=== PATIENT | female | born 1950 | race Two or more races ===

== ENCOUNTER 2020-02-09 08:50 | Inpatient (IN) | payer OTHER ==
[~2020-02-09] VITALS: Ht 165.1 cm; Wt 96.2 kg
--- NOTE | 2020-02-09 10:00 | NUR ---
WOUND CARE NOTE: IN TO SEE PATIENT AT THIS TIME PER WOUND CARE CONSULT REQUEST BY BEDSIDE NURSE. [facility]OC. PATIENT BROUGHT COVERED IN FECES, ALOC. BEDSIDE NURSE RECENTLY PROVIDED BEDBATH/PERICARE TO THE PATIENT. ALL FECES REMOVED. SKIN TO THE SACRUM, BUTTOCKS, BILATERAL POSTERIOR THIGHS, PERINEUM IS BRIGHT RED, INTACT. PATIENT HAS KATYA D/T HER BEING INCONTINENT OF BOWEL AND BLADDER FOR UNKNOWN PERIOD OF TIME. ASSESSED DANIEL SCORE 12. PATIENT IS VERY CONFUSED, BUT CAN ASSIST WITH HER TURNING. NO OTHER SKIN INTEGRITY ISSUES SEEN AT THIS TIME. [facility]. SKIN/WOUND CARE PLAN IMPLEMENTED. RECOMMEND: SPECIALTY AIR MATTRESS, PATIENT TO BE PLACED, PENDING DELIVERY BY ROBERT CARABALLO, FREQUENT TURN SCHEDULE Q 2 HOURS, PRN CONDITION PERMITS, WITH PRESSURE REDISTRIBUTION USING PILLOWS/WEDGES, BID/PRN APPLICATION ZGUARD, OPTIFOAM GENTLE SACRAL DRESSING PREVENTATIVE, DIETARY CONSULT FOR LOW DANIEL SCORE OF 12, CONTINUED MONITORING BY WOUND CARE TEAM. Addendum: 02/09/20 at 1446 by Augustina Murphy RN Amended: Links added.
[2020-02-09] MEDS ORDERED: SODIUM CHLORIDE 0.9% 1,000 ML IV ONE (10:25)
[2020-02-09] MEDS ORDERED: SODIUM CHLORIDE 0.9% 500 ML IVB ONE (10:25)
[2020-02-09 10:48] LABS: Urine Bacteria NONE SEEN /hpf (None Seen); Urine Blood 1+ /uL (Negative); Urine WBC 1 /hpf (0 - 5)
[2020-02-09 10:57] LABS: Basophils # (auto) 0 10 ^3/uL (0-0.2); Basophils % (auto) 0.2 % (0.0-2.0); Eosinophils # (auto) 0 10 ^3/uL (0-0.8); Eosinophils % (auto) 0.1 % (0.0-7.0); Hematocrit 28.6 % (36.0-46.0); Lymphocytes # (auto) 1.2 10 ^3/uL (0.4-5.4); Lymphocytes % (auto) 7.1 % (10.0-50.0); Mean Corpuscular Hemoglobin 30.7 pg (28.0-32.0); Mean Corpuscular Hgb Conc. 31.5 g/dL (32.0-36.0); Mean Corpuscular Volume 97.5 fL (80.0-100.0); Monocytes % (auto) 11.9 % (0.0-12.0); Neutrophils # (auto) 13.5 10 ^3/uL (1.6-8.6); Neutrophils % (auto) 80.7 % (37.0-80.0); Nucleated Red Blood Cells % 0.1 %; Platelet Count (auto) 248 10^3/uL (140-450); Red Blood Cells 2.93 10^6/uL (4.0-5.20); Red Cell Distribution Width 14.6 % (11.8-14.3); White Blood Cell 16.7 10^3/uL (4.4-10.8)
[2020-02-09 11:13] LABS: Alcohol, Urine < 3.0 mg/dL (0-10); Amphetamine Screen, Urine NEGATIVE (NEGATIVE); Barbiturate Scree,Urine NEGATIVE (NEGATIVE); Benzodiazephine Screen, Urine NEGATIVE (NEGATIVE); Cannabinoid Screen, Urine NEGATIVE (NEGATIVE); Cocaine Screen, Urine NEGATIVE (NEGATIVE); Opiate Scree,Urine POSITIVE (NEGATIVE); Phencyclidine Screen, Urine NEGATIVE (NEGATIVE)
[2020-02-09 11:34] LABS: Calcium 9.1 mg/dL (8.5-10.1); Potassium 4.9 mmol/L (3.5-5.1)
[2020-02-09 11:38] LABS: BUN/Creatinine Ratio 33.9; Bilirubin, Total 0.8 mg/dL (0.2-1.0); Magnesium 2.2 mg/dL (1.6-2.6); Total Protein 6.4 g/dL (6.4-8.2)
[2020-02-09] MEDS ORDERED: LORazepam 2MG/ML-1ML VIAL IV ONE ×2 (12:00→16:00)
[2020-02-09 12:13] LABS: Lactic Acid w/Reflex 2.6 mmol/L (0.4-2.0)
[2020-02-09 13:51] LABS: INR 5.35 (0.9-1.15)
[2020-02-09] MEDS ORDERED: ALBUTEROL SULF HFA 90MCG INH 200DOSE IN SCH (14:00)
[2020-02-09] MEDS ORDERED: phytonadione 2 ML ONE (14:04)
[2020-02-09] MEDS ORDERED: DEXTROSE (50%) 50ML SYRG IV PRN (14:15)
[2020-02-09] MEDS ORDERED: PANTOPRAZOLE 40 MG/10 ML VIAL INJ IV ONE (14:15)
[2020-02-09] MEDS ORDERED: traMADol HCL 50 MG TAB PO PRN (14:15)
[2020-02-09] MEDS ORDERED: ACETAMINOPHEN 500 MG TAB PO PRN (14:15)
[2020-02-09] MEDS ORDERED: ONDANSETRON HCL 4 MG/2 ML VIAL IV PRN (14:15)
[2020-02-09] MEDS ORDERED: MORPHINE SULF INJ 2 MG/ML SYRINGE 1ML IV PRN (14:15)
[2020-02-09] MEDS ORDERED: NITROGLYCERIN 0.4 MG SL TAB SL PRN (14:15)
[2020-02-09] MEDS ORDERED: PHYTONADIONE (VIT K)10 MG/ML 1ML VIAL SUBCUT ONE (14:15)
[2020-02-09] MEDS ORDERED: levoFLOXacin 500MG 100 ML IV ONE (14:15)
[2020-02-09 14:16] LABS: CRP High Sensitivity 0.61 mg/dL (< 0.3)
[2020-02-09] MEDS: SODIUM CHLORIDE 0.9% 1,000 ML IV SCH ×2 (14:34→22:08)
[2020-02-09 15:01] LABS: Amylase 33 U/L (25-115); Lipase 61 U/L (73-393)
[2020-02-09] MEDS: MORPHINE SULF INJ 2 MG/ML SYRINGE 1ML IV PRN ×2 (15:27→20:02)
[2020-02-09] MEDS ORDERED: LORazepam 2MG/ML-1ML VIAL IV PRN (16:00)
[2020-02-09] MEDS ORDERED: diphenhdrAMINE HCL 50 MG/1 ML VL IV ONE (16:00)
[2020-02-09] MEDS ORDERED: diphenhdrAMINE HCL 50 MG/1 ML VL ONE (16:02)
[2020-02-09] MEDS ORDERED: LORazepam 2MG/ML-1ML VIAL ONE (16:02)
[2020-02-09] MEDS ORDERED: HALOPERIDOL LACTATE 5 MG/ML INJ VIAL ONE (16:03)
[2020-02-09] MEDS ORDERED: HALOPERIDOL LACTATE 5 MG/ML INJ VIAL IM ONE (16:30)
[2020-02-09] MEDS: ACCU-CHEK COMFORT CURVE STRIP VI SCH (18:30)
[2020-02-09 19:16] LABS: Hematocrit 28.1 % (36.0-46.0); Hemoglobin 8.7 g/dL (12.2-16.2)
[2020-02-09] MEDS: LORazepam 2MG/ML-1ML VIAL IV PRN (20:47)
[2020-02-09] MEDS: PANTOPRAZOLE 40 MG/10 ML VIAL INJ IV SCH (22:08)
[2020-02-09] MEDS: metroNIDAZOLE 500MG/100ML 100 ML IV SCH (22:08)
[2020-02-10] VITALS (12 sets, daily range): BP systolic 65–146; BP diastolic 21–88
[2020-02-10] MEDS: ACCU-CHEK COMFORT CURVE STRIP VI SCH ×4 (00:21→18:05)
[2020-02-10 01:51] LABS: Hematocrit 23.4 % (36.0-46.0); Hemoglobin 7.5 g/dL (12.2-16.2)
[2020-02-10] MEDS: LORazepam 2MG/ML-1ML VIAL IV PRN ×2 (02:47→09:15)
[2020-02-10] MEDS: MORPHINE SULF INJ 2 MG/ML SYRINGE 1ML IV PRN (05:12)
[2020-02-10] MEDS ORDERED: HALOPERIDOL LACTATE 5 MG/ML INJ VIAL IM PRN (06:00)
[2020-02-10] MEDS: metroNIDAZOLE 500MG/100ML 100 ML IV SCH ×2 (06:28→14:57)
[2020-02-10] MEDS: SODIUM CHLORIDE 0.9% 1,000 ML IV SCH (06:29)
[2020-02-10] MEDS ORDERED: ACETAMINOPHEN 650 MG RECT SUPP PR ONE (07:30)
[2020-02-10 07:33] LABS: Basophils # (auto) 0.1 10 ^3/uL (0-0.2); Eosinophils # (auto) 0 10 ^3/uL (0-0.8); Eosinophils % (auto) 0.1 % (0.0-7.0); Hematocrit 22.1 % (36.0-46.0); Hemoglobin 7.1 g/dL (12.2-16.2); Lymphocytes # (auto) 1.2 10 ^3/uL (0.4-5.4); Mean Corpuscular Hgb Conc. 32.3 g/dL (32.0-36.0); Monocytes # (auto) 1.5 10 ^3/uL (0-1.3)
[2020-02-10 07:34] LABS: Basophils % (auto) 0.7 % (0.0-2.0); Mean Corpuscular Volume 95.9 fL (80.0-100.0); Monocytes % (auto) 11.5 % (0.0-12.0); Neutrophils # (auto) 10.1 10 ^3/uL (1.6-8.6); Neutrophils % (auto) 78.7 % (37.0-80.0); Nucleated Red Blood Cells % 0.2 %; Platelet Count (auto) 201 10^3/uL (140-450); Red Cell Distribution Width 14.2 % (11.8-14.3); White Blood Cell 12.8 10^3/uL (4.4-10.8)
[2020-02-10 07:46] LABS: INR 1.65 (0.9-1.15); Partial Thromboplastin Time 27.9 sec (23.64-32.05)
[2020-02-10 07:58] LABS: Albumin 2.8 g/dL (3.4-5.0); Calcium 8.5 mg/dL (8.5-10.1); Potassium 4.2 mmol/L (3.5-5.1)
[2020-02-10 08:03] LABS: BUN/Creatinine Ratio 24.8; Bilirubin, Total 0.9 mg/dL (0.2-1.0); Total Protein 5.9 g/dL (6.4-8.2)
[2020-02-10] MEDS ORDERED: MEMA1TAB3 PO (08:17)
[2020-02-10] MEDS ORDERED: VENL150T26 PO (08:17)
[2020-02-10] MEDS ORDERED: AMLO5TAB15 PO (08:17)
[2020-02-10] MEDS ORDERED: MET50T PO (08:17)
[2020-02-10] MEDS ORDERED: LISI-648 PO (08:17)
[2020-02-10] MEDS ORDERED: METO25TA5 PO (08:17)
[2020-02-10] MEDS ORDERED: OMEP20TA PO (08:17)
[2020-02-10] MEDS ORDERED: ASPI-231 PO (08:17)
[2020-02-10] MEDS ORDERED: TOLT2CAP7 PO (08:17)
[2020-02-10] MEDS ORDERED: LORazepam 2MG/ML-1ML VIAL IV PRN (09:15)
[2020-02-10] MEDS: PANTOPRAZOLE 40 MG/10 ML VIAL INJ IV SCH ×2 (09:45→22:00)
[2020-02-10 09:48] LABS: Folate (Folic Acid) 14.08 ng/mL (5.38-24)
[2020-02-10] MEDS ORDERED: ZINC SULFATE 220mg CAP or TAB PO SCH (10:00)
[2020-02-10] MEDS ORDERED: ASCORBIC ACID 1,000 MG TAB PO SCH (10:00)
[2020-02-10] MEDS ORDERED: levoFLOXacin 500MG 100 ML IV SCH (10:00)
[2020-02-10] MEDS ORDERED: ENOXAPARIN SOD 40 MG/0.4 ML SYRINGE SC SCH (10:00)
[2020-02-10] MEDS ORDERED: CHOLECALCIFEROL (VITD3) 1,000UNIT=25mCg TAB PO SCH (10:00)
[2020-02-10] MEDS ORDERED: SUCCINYLCHOLINE CHLORIDE 20 MG/ML 10ML VIAL IV ONE ×2 (13:37→13:45)
[2020-02-10] MEDS ORDERED: ETOMIDATE (2MG/ML) 20ML VIAL IV ONE ×2 (13:37→13:45)
[2020-02-10] MEDS ORDERED: MIDAZOLAM DRIP 50 mg/50mL 50 ML IV ONE (13:39)
--- NOTE | 2020-02-10 13:39 | NUR ---
EEG- UNABLE TO COMPLETE ELECTROENCEPHALOGRAM, PATIENT CONFUSED AND RESTLESS.
[2020-02-10] MEDS: MIDAZOLAM DRIP 50 mg/50mL 50 ML IV SCH ×2 (13:53→23:00)
[2020-02-10] MEDS ORDERED: NOREPINEPHRINE 8 MG/250ML KIT 250 ML IV ONE (14:13)
[2020-02-10] MEDS ORDERED: PROPOFOL 100 ML IV ONE (14:30)
[2020-02-10] MEDS: PROPOFOL 100 ML IV SCH ×2 (15:35→22:30)
--- NOTE | 2020-02-10 16:21 | NUR ---
Nutrition Assessment Notes Please refer to link for full assessment notes. Est Energy needs: 9453-2232 kcals (17-20 kcal/kgBW) Est Protein needs: 82-90 gms/day (1.0-1.1 gm/kgBW) Will continue to monitor and reassess prn. Addendum: 02/10/20 at [address] Amended: Links added.
[2020-02-10] MEDS ORDERED: FLUCONAZOLE 200MG/100ML 100 ML IV ONE (17:30)
[2020-02-10] MEDS: D5W/SOD CHL 0.45% 1,000 ML IV SCH (18:03)
--- NOTE | 2020-02-10 18:20 | NUR ---
ss consult Per ss consult help to get contact information. Contact information was received. Patient has a di Jackson [phone]. Addendum: 02/10/20 at 1822 by Nhi Jara Amended: Links added.
[2020-02-10] MEDS ORDERED: MEROPENEM 1GM IVPB 100 ML IV ONE (19:00)
[2020-02-10 19:45] LABS: Hematocrit 22.4 % (36.0-46.0); Hemoglobin 7.4 g/dL (12.2-16.2)
[2020-02-10] MEDS: ACETAMINOPHEN 500 MG TAB PO PRN (20:49)
[2020-02-10] MEDS: LINEZOLID 600MG/300ML 300 ML IV SCH (22:00)
[2020-02-10] MEDS ORDERED: MIRTAZAPINE 30 MG TAB PO SCH (22:00)
[2020-02-11] VITALS (13 sets, daily range): BP systolic 110–149; BP diastolic 48–68
[2020-02-11] MEDS: ACCU-CHEK COMFORT CURVE STRIP VI SCH ×4 (00:12→17:31)
[2020-02-11 02:12] LABS: Hemoglobin 7.7 g/dL (12.2-16.2)
[2020-02-11 02:14] LABS: Hematocrit 23.5 % (36.0-46.0)
[2020-02-11] MEDS: MIDAZOLAM DRIP 50 mg/50mL 50 ML IV SCH ×3 (02:53→17:31)
[2020-02-11 06:25] LABS: Basophils # (auto) 0 10 ^3/uL (0-0.2); Basophils % (auto) 0.2 % (0.0-2.0); Eosinophils # (auto) 0.2 10 ^3/uL (0-0.8); Eosinophils % (auto) 1.6 % (0.0-7.0); Hemoglobin 7.9 g/dL (12.2-16.2); Lymphocytes # (auto) 0.8 10 ^3/uL (0.4-5.4); Lymphocytes % (auto) 9.1 % (10.0-50.0); Mean Corpuscular Hemoglobin 31.8 pg (28.0-32.0); Mean Corpuscular Hgb Conc. 33.1 g/dL (32.0-36.0); Mean Corpuscular Volume 96.1 fL (80.0-100.0); Monocytes # (auto) 0.9 10 ^3/uL (0-1.3); Monocytes % (auto) 9.6 % (0.0-12.0); Neutrophils # (auto) 7.4 10 ^3/uL (1.6-8.6); Neutrophils % (auto) 79.5 % (37.0-80.0); Nucleated Red Blood Cells % 0.5 %; Platelet Count (auto) 143 10^3/uL (140-450); Red Blood Cells 2.49 10^6/uL (4.0-5.20); Red Cell Distribution Width 14.8 % (11.8-14.3); White Blood Cell 9.3 10^3/uL (4.4-10.8)
[2020-02-11 06:41] LABS: Potassium 3.3 mmol/L (3.5-5.1)
[2020-02-11 06:43] LABS: INR 1.2 (0.9-1.15); Partial Thromboplastin Time 27.3 sec (23.64-32.05)
[2020-02-11 06:52] LABS: Albumin 2.5 g/dL (3.4-5.0); BUN/Creatinine Ratio 19.5; Bilirubin, Total 0.6 mg/dL (0.2-1.0); Calcium 8.1 mg/dL (8.5-10.1); Total Protein 5.3 g/dL (6.4-8.2)
[2020-02-11] MEDS ORDERED: MEROPENEM 1GM IVPB 100 ML IV SCH (08:00)
[2020-02-11] MEDS: PANTOPRAZOLE 40 MG/10 ML VIAL INJ IV SCH ×2 (08:08→22:11)
[2020-02-11] MEDS ORDERED: cefTRIAXone 1GM/50ML D5W 50 ML IV ONE (08:16)
[2020-02-11] MEDS: PROPOFOL 100 ML IV SCH ×2 (09:00→11:06)
--- NOTE | 2020-02-11 09:05 | NUR ---
Respiratory note: PAGED TO MOVE PT FROM ER BED 11, TO ER BED 17. PT MOVED WITHOUT INCIDENT. RN AT BEDSIDE. WILL CONTINUE TO MONITOR PT.
[2020-02-11] MEDS: LINEZOLID 600MG/300ML 300 ML IV SCH ×2 (09:33→22:11)
[2020-02-11] MEDS: NYSTATIN TOPICAL POWDER 15GM TOP SCH ×2 (09:33→22:11)
[2020-02-11] MEDS: D5W/SOD CHL 0.45% 1,000 ML IV SCH (11:42)
[2020-02-11] MEDS: FLUCONAZOLE 200MG/100ML 100 ML IV SCH (11:42)
[2020-02-11] MEDS: ALBUTEROL SULF 2.5 MG/0.5ML(0.5%) NEB SOLN NEB SCH ×2 (12:07→18:59)
[2020-02-11] MEDS ORDERED: SODIUM CHLORIDE LOCK 10 ML ONE (12:27)
[2020-02-11] MEDS ORDERED: fentaNYL CITRATE 100 MCG/2 ML VL ONE (12:28)
[2020-02-11] MEDS ORDERED: diphenhdrAMINE HCL 50 MG/1 ML VL ONE (12:28)
[2020-02-11] MEDS ORDERED: MIDAZOLAM HCL 5 MG/ML-1ML VIAL ONE (12:28)
[2020-02-11] MEDS: MEROPENEM 1GM IVPB 100 ML IV SCH (16:17)
[2020-02-11] MEDS: ACETAMINOPHEN 650 mg PER 20 mL UD GT PRN ×2 (16:37→22:51)
[2020-02-11] MEDS ORDERED: TPN PER PHARMACY 0 ML IV SCH (20:45)
[2020-02-11] MEDS: AMINO ACID INFUSION IN D5W 2,000 ML IV NR ×2 (21:09→21:51)
[2020-02-11] MEDS: POTASSIUM CHL 20MEQ/100ML 100 ML IV SCH ×2 (21:22→22:58)
[2020-02-12] VITALS (19 sets, daily range): BP systolic 112–148; BP diastolic 46–79
[2020-02-12] MEDS ORDERED: DEXTROSE (50%) 50ML SYRG IV SCH
[2020-02-12] MEDS ORDERED: IBUPROFEN 100MG/5ML ORAL SUSP 100 MG/5 ML UD GT ONE (00:30)
[2020-02-12] MEDS: InsuLIN REG 1unit/0.01ml Soln (100units/ml) SC SCH ×4 (00:59→17:18)
[2020-02-12] MEDS: MEROPENEM 1GM IVPB 100 ML IV SCH ×3 (01:00→15:55)
[2020-02-12] MEDS: ACCU-CHEK COMFORT CURVE STRIP VI SCH ×4 (06:22→17:18)
[2020-02-12 08:32] LABS: Albumin 2.1 g/dL (3.4-5.0); Calcium 7.6 mg/dL (8.5-10.1); Magnesium 1.7 mg/dL (1.6-2.6); Potassium 3.1 mmol/L (3.5-5.1)
[2020-02-12 08:37] LABS: BUN/Creatinine Ratio 11.8; Bilirubin, Total 0.6 mg/dL (0.2-1.0); Phosphorus 2.9 mg/dL (2.5-4.90); Pre Albumin 7.5 mg/dL (20.0-40.0); Total Protein 5.2 g/dL (6.4-8.2)
[2020-02-12] MEDS: D5W/SOD CHL 0.45% 1,000 ML IV SCH (09:07)
[2020-02-12] MEDS: PANTOPRAZOLE 40 MG/10 ML VIAL INJ IV SCH ×2 (09:07→21:35)
[2020-02-12] MEDS ORDERED: POTASSIUM EFFERVESENT TAB 25 MEQ GT ONE ×2 (09:15→09:30)
[2020-02-12 09:16] LABS: Basophils # (auto) 0 10 ^3/uL (0-0.2); Hematocrit 25.7 % (36.0-46.0); Hemoglobin 8.2 g/dL (12.2-16.2); Lymphocytes # (auto) 0.9 10 ^3/uL (0.4-5.4); Lymphocytes % (auto) 7.6 % (10.0-50.0); Monocytes # (auto) 1.1 10 ^3/uL (0-1.3); Nucleated Red Blood Cells % 0.1 %; Red Blood Cells 2.65 10^6/uL (4.0-5.20)
[2020-02-12 09:17] LABS: Basophils % (auto) 0.2 % (0.0-2.0); Eosinophils # (auto) 0.1 10 ^3/uL (0-0.8); Eosinophils % (auto) 1.1 % (0.0-7.0); Mean Corpuscular Hemoglobin 30.8 pg (28.0-32.0); Mean Corpuscular Hgb Conc. 31.7 g/dL (32.0-36.0); Mean Corpuscular Volume 97.1 fL (80.0-100.0); Monocytes % (auto) 8.7 % (0.0-12.0); Neutrophils # (auto) 10.2 10 ^3/uL (1.6-8.6); Neutrophils % (auto) 82.4 % (37.0-80.0); Platelet Count (auto) 140 10^3/uL (140-450); Red Cell Distribution Width 15.1 % (11.8-14.3); White Blood Cell 12.4 10^3/uL (4.4-10.8)
[2020-02-12] MEDS ORDERED: POTASSIUM CHLORIDE 60 MEQ, LIDOCAINE 1% (LOCAL ANESTH.) 6 ML in SODIUM CHL 0.9% 500 ML IV ONE (09:30)
[2020-02-12] MEDS: ALBUTEROL SULF 2.5 MG/0.5ML(0.5%) NEB SOLN NEB SCH ×4 (10:07→19:07)
[2020-02-12] MEDS: NYSTATIN TOPICAL POWDER 15GM TOP SCH ×2 (10:29→21:35)
[2020-02-12] MEDS: LINEZOLID 600MG/300ML 300 ML IV SCH ×2 (10:29→21:49)
[2020-02-12] MEDS: FLUCONAZOLE 200MG/100ML 100 ML IV SCH (13:45)
[2020-02-12] MEDS: MIDAZOLAM DRIP 50 mg/50mL 50 ML IV SCH ×2 (13:50→14:10)
--- NOTE | 2020-02-12 14:57 | NUR ---
Nutrition Consult/Followup Notes Wt: 81.6 kg Pt`s intubated sedated with no family by bedside when rounded this am. pt is currently NPO and to begin PN support from tonight @ 45 ml/hr providing 1150 kcals and 50 gm proteins. Est Energy needs: 7242-8402 kcals (17-20 kcal/kgBW), Est Protein needs: 82-90 gms/day (1.0-1.1 gm/kgBW). Will continue to monitor and reassess prn.. LABS: GLU 146 H, ALB 2.1 L, PREALB 7.5 L, TG wnl GI: Pt has no BM reported per pt and RN doc BS: 12 high risk, per RN doc. Please refer to wound assessment report for full details. PES: 1) Increased nutrient needs aeb pt sedated, NPO pt with no PO intake 2) Altered nutrition related lab values elev LFTs, elev RFTs, low GFR, hyperglycemia, mod hypoalbuminemia r/t current medical condition Comments Will continue to closely monitor pertinent labs, PO intake, and skin status prn. Will followup in 2-3 days 1) Continue to closely monitor pt NPO status. 2) Gradually advance pt to oral diet when medically feasible and as tolerated. 3) Consider a daily MVI with 500mg VitC BID. 4) advance PN support to meet > 75% of needs. 5) Continue current plan of care
[2020-02-12] MEDS ORDERED: ENOXAPARIN SOD 40 MG/0.4 ML SYRINGE SC ONE (18:45)
[2020-02-12] MEDS ORDERED: WARFARIN SODIUM 5 MG TAB PO ONE (19:00)
[2020-02-12] MEDS: LORazepam 2MG/ML-1ML VIAL IV PRN (19:55)
[2020-02-12] MEDS: ENOXAPARIN SOD 80 MG/0.8ML SYRINGE SC SCH ×2 (19:55→21:35)
[2020-02-12] MEDS ORDERED: TPN PER PHARMACY IV NR ×10 (20:00)
[2020-02-12] MEDS: MUPIROCIN 2% OINT 15gm or 22gm EACHNOSTRI SCH (21:35)
[2020-02-12] MEDS ORDERED: ENOXAPARIN SOD 80 MG/0.8ML SYRINGE SC SCH (22:00)
[2020-02-12] MEDS: ACETAMINOPHEN 650 mg PER 20 mL UD GT PRN (22:20)
[2020-02-13] VITALS (59 sets, daily range): BP systolic 118–164; BP diastolic 41–83
[2020-02-13] MEDS: ALBUTEROL SULF 2.5 MG/0.5ML(0.5%) NEB SOLN NEB SCH ×4 (00:55→18:36)
[2020-02-13] MEDS: MIDAZOLAM DRIP 50 mg/50mL 50 ML IV SCH ×5 (03:24→23:49)
[2020-02-13] MEDS: ACCU-CHEK COMFORT CURVE STRIP VI SCH ×4 (05:41→17:37)
[2020-02-13] MEDS: ACETAMINOPHEN 650 mg PER 20 mL UD GT PRN (05:48)
[2020-02-13] MEDS: InsuLIN REG 1unit/0.01ml Soln (100units/ml) SC SCH ×4 (05:51→17:36)
[2020-02-13] MEDS: ACETAMINOPHEN 500 MG TAB PO PRN (05:51)
[2020-02-13 05:53] LABS: Basophils # (auto) 0 10 ^3/uL (0-0.2); Basophils % (auto) 0.2 % (0.0-2.0); Eosinophils # (auto) 0.2 10 ^3/uL (0-0.8); Eosinophils % (auto) 2.3 % (0.0-7.0); Hematocrit 25.4 % (36.0-46.0); Hemoglobin 8.5 g/dL (12.2-16.2); Lymphocytes # (auto) 0.9 10 ^3/uL (0.4-5.4); Lymphocytes % (auto) 9.3 % (10.0-50.0); Mean Corpuscular Hgb Conc. 33.3 g/dL (32.0-36.0); Mean Corpuscular Volume 95.9 fL (80.0-100.0); Monocytes # (auto) 0.9 10 ^3/uL (0-1.3); Monocytes % (auto) 9.3 % (0.0-12.0); Neutrophils # (auto) 7.9 10 ^3/uL (1.6-8.6); Neutrophils % (auto) 78.9 % (37.0-80.0); Nucleated Red Blood Cells % 0.1 %; Platelet Count (auto) 140 10^3/uL (140-450); Red Blood Cells 2.65 10^6/uL (4.0-5.20)
[2020-02-13 06:15] LABS: Potassium 3.9 mmol/L (3.5-5.1)
[2020-02-13 06:17] LABS: INR 1.24 (0.9-1.15); Partial Thromboplastin Time 35.7 sec (23.64-32.05)
[2020-02-13 06:25] LABS: Albumin 2.2 g/dL (3.4-5.0); BUN/Creatinine Ratio 13.5; Bilirubin, Total 0.4 mg/dL (0.2-1.0); Calcium 7.9 mg/dL (8.5-10.1); Magnesium 1.8 mg/dL (1.6-2.6); Total Protein 5.9 g/dL (6.4-8.2)
[2020-02-13] MEDS: MEROPENEM 1GM IVPB 100 ML IV SCH ×3 (07:47→15:31)
[2020-02-13] MEDS: MUPIROCIN 2% OINT 15gm or 22gm EACHNOSTRI SCH ×2 (09:39→22:00)
[2020-02-13] MEDS: LINEZOLID 600MG/300ML 300 ML IV SCH ×2 (09:39→22:00)
[2020-02-13] MEDS: PANTOPRAZOLE 40 MG/10 ML VIAL INJ IV SCH ×2 (09:39→22:00)
[2020-02-13] MEDS: NYSTATIN TOPICAL POWDER 15GM TOP SCH ×2 (09:39→22:00)
[2020-02-13] MEDS: ENOXAPARIN SOD 80 MG/0.8ML SYRINGE SC SCH ×2 (09:39→22:00)
[2020-02-13] MEDS ORDERED: ENOXAPARIN SOD 40 MG/0.4 ML SYRINGE SC SCH (10:00)
[2020-02-13] MEDS ORDERED: SODIUM PHOSP 40 MEQ in D5W 5% 250 ML IV ONE (11:00)
[2020-02-13] MEDS: FLUCONAZOLE 200MG/100ML 100 ML IV SCH (11:54)
--- NOTE | 2020-02-13 13:50 | NUR ---
RT NOTE: PT. TRANSPORTED WITH LOCK INSTALLER AND RN HANH ON 15L O2 WITH BVM AND TRANSFILL TECHNICIAN WITHOUT INCIDENT. PT. PLACED ON VENTILATOR WITH ORDERED SETTINGS. ALARMS ARE ON AND AUDIBLE.
--- NOTE | 2020-02-13 16:00 | NUR ---
RECEIVED PT FROM ED V PACED AT 89, VENTILATED AC 114 TV 450 30% FI02 PEEP 6, LS CTA DIMINISHED ON THE BASIS MINIMAL ETT AND ORAL WHITE THIN SECRETIONS. PT TACHYPNEIC RR MID 30'S TO LOW 40'S RT STATES RR WAS IN THE 30'S THIS IS THE 1ST TIME RR HAS INCREASED TO THE 40'S POSSIBLY FROM ALL THE MOVEMENT FROM WHEN TRANSFERRING FROM ED TO ICU. VERSED INCREASED FROM 10 TO 12 TO DECREASE PT'S ANXIETY, VSS, PT HAS A LOW GRADE TEMP 100.O0 TEMP. ORALLY . ICE PACKS APPLIES TO LIZZETH. ARM PITS, BOTH GROINS AND BEHIND PT'S NECK. PT HAS A RECTAL TUBE IN PLACE DRAINING BROWN LIQUID STOOL. PT'S COCCYX IS EXCORIATED FROM DIARRHEA AND HAS A MAROON NON- BLANCHABLE SKIN AREA.PICTURE HAS ALREADY BEEN TAKEN. WILL REQUEST A 2ND PICTURE FOR RE-EVALUATION. ORAL CARE PROVIDED, MONITOR ALARMS VERIFIED. REPOSITIONED FOR COMFORT. PT IS LAYING ON A SPECIALTY AIR MATTRESS. 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
[2020-02-13] MEDS ORDERED: WARFARIN SODIUM 5 MG TAB PO ONE (17:00)
--- NOTE | 2020-02-13 18:00 | NUR ---
BG WNL NO COVERAGE NEEDED. ORAL CARE PER VAP PROTOCOL. REPOSITIONED FOR COMFORT. SKIN REMAINS DRY.
[2020-02-13] MEDS ORDERED: TPN PER PHARMACY IV NR ×10 (20:00)
--- NOTE | 2020-02-13 20:00 | NUR ---
REPORT GIVEN TO ILDEFONSO PAUL.
[2020-02-14] VITALS (95 sets, daily range): BP systolic 105–163; BP diastolic 38–83
[2020-02-14] MEDS: ALBUTEROL SULF 2.5 MG/0.5ML(0.5%) NEB SOLN NEB SCH ×5 (00:08→23:53)
[2020-02-14] MEDS: MORPHINE SULF INJ 2 MG/ML SYRINGE 1ML IV PRN ×2 (01:38→05:40)
[2020-02-14 04:34] LABS: INR 1.41 (0.9-1.15); Partial Thromboplastin Time 36.6 sec (23.64-32.05)
[2020-02-14 04:46] LABS: Albumin 1.7 g/dL (3.4-5.0); BUN/Creatinine Ratio 15.3; Calcium 7.7 mg/dL (8.5-10.1); Magnesium 2.1 mg/dL (1.6-2.6); Potassium 3.5 mmol/L (3.5-5.1)
[2020-02-14 04:49] LABS: Bilirubin, Total 0.2 mg/dL (0.2-1.0); Phosphorus 4.1 mg/dL (2.5-4.90); Total Protein 4.9 g/dL (6.4-8.2)
[2020-02-14] MEDS: ACCU-CHEK COMFORT CURVE STRIP VI SCH ×5 (05:39→23:46)
[2020-02-14] MEDS: InsuLIN REG 1unit/0.01ml Soln (100units/ml) SC SCH ×5 (05:39→23:46)
[2020-02-14] MEDS: MIDAZOLAM DRIP 50 mg/50mL 50 ML IV SCH ×2 (05:45→08:51)
[2020-02-14] MEDS: NYSTATIN TOPICAL POWDER 15GM TOP SCH ×2 (08:50→22:24)
[2020-02-14] MEDS: MUPIROCIN 2% OINT 15gm or 22gm EACHNOSTRI SCH ×2 (08:55→22:24)
[2020-02-14] MEDS: PANTOPRAZOLE 40 MG/10 ML VIAL INJ IV SCH ×2 (09:32→22:23)
[2020-02-14] MEDS: LINEZOLID 600MG/300ML 300 ML IV SCH ×2 (09:32→22:23)
[2020-02-14] MEDS: MEROPENEM 1GM IVPB 100 ML IV SCH ×4 (09:32→23:47)
[2020-02-14] MEDS: ENOXAPARIN SOD 80 MG/0.8ML SYRINGE SC SCH (09:32)
--- NOTE | 2020-02-14 10:00 | NUR ---
Respiratory note: RETRACTED ETT POST AM CHEST XRAY, FROM 26 TO 24CM AT THE LIP. ILDEFONSO REILLY.
--- NOTE | 2020-02-14 10:30 | NUR ---
Sedation Sedation stopped for cpap trial per Marine Driller. R.t aware. Patient remains sedated at this time. Vent changes made by R.t. When patient awake patient to be set on cpap trial.
--- NOTE | 2020-02-14 10:40 | NUR ---
Respiratory note: VENT CHANGE PER DR.M KIRBY, TO SIMV RR12, VT 450, PEEP 5, PRESSURE SUPPORT 8. CPAP TRIAL THIS AFTERNOON IF PATIENT IS AWAKE, FOLLOW UP ABG WITH CPAP TRIAL. ILDEFONSO HYATT INFORMED OF CHANGES.
--- NOTE | 2020-02-14 11:38 | NUR ---
Nutrition Consult/Followup Notes Wt: 81.6 kg, pt with wt if 97kg, a gain of 15.4kg since admission, no previous visit to verify wt history Pt`s intubated sedated with no family by bedside when rounded this am. pt is currently NPO and to begin PN support @ 60 ml/hr providing 1370 kcals and 80 gm proteins, 1050 NCP. This provides 84-99% of energy needs and 89-98% of protein needs Est Energy needs: 6325-1263 kcals (17-20 kcal/kgBW), Est Protein needs: 82-90 gms/day (1.0-1.1 gm/kgBW). Will continue to monitor and reassess prn.. LABS: GLUC 107H, Alb 1.7L, Ca 7.7L GI: Pt had 2 BM 02/12 per RN note BS: 11 high risk, per RN doc. Please refer to wound assessment report for full details. PES: 1) Increased nutrient needs aeb pt sedated, NPO pt with no PO intake 2) Altered nutrition related lab values elev LFTs, elev RFTs, low GFR, hyperglycemia, mod hypoalbuminemia r/t current medical condition Comments Will continue to closely monitor pertinent labs, PO intake, and skin status prn. Will followup in 2-3 days 1) Continue to closely monitor pt NPO status. 2) Gradually advance pt to oral diet when medically feasible and as tolerated. 3) Consider a daily MVI with 500mg VitC BID. 4) Continue PN support to meet > 75% of needs. 5) Continue current plan of care
--- NOTE | 2020-02-14 12:00 | NUR ---
Dr. Ruiz at bedside Md updated on patients status and pending cpap trial. Tube feedings to be started if no cpap today and TPN to be titrated off.
[2020-02-14] MEDS: FLUCONAZOLE 200MG/100ML 100 ML IV SCH (13:12)
--- NOTE | 2020-02-14 13:56 | NUR ---
assessment Patient is a 70 year old female who is on a vent in ICU. Per patients di Jackson prior to admission patient resided in a senior apartment complex [facility]. Per Manuel patient has been independent up until now. Per Manuel he spoke with patient 2 weeks ago and she was doing fine. Manuel lives in [place] and was last here 1 year ago. Manuel provided me with patients insurance information and I provided it to Tala in admitting and she updated patients chart. I informed Manuel patients discharge needs to be determined after extubation and prior to discharge. I will continue to monitor and follow up as appropriate. Manuel verbalized understanding. Addendum: 02/14/20 at 1401 by Nhi CUEVA Amended: Links added.
[2020-02-14] MEDS: ACETAMINOPHEN 650 mg PER 20 mL UD GT PRN (14:26)
--- NOTE | 2020-02-14 15:27 | NUR ---
Coffee Maker paged Dr. Kenney paged to clarify order: Md stated ok to start on low dose Fent per protocol as patients RR noted 25-28. Patient ok to remain on SIMV throughout night. If patient does not tolerate, ok to set back on previous settings. New orders for precedex with cpap in am.
--- NOTE | 2020-02-14 15:59 | NUR ---
DR. MARYA MALHOTRA CALLED, UPDATED ON PATIENT STATUS AND POSSIBLE CPAP TRIAL WHEN AWAKE. MD STATED IF NOT PLANS TO CONTINUE WITH CPAP OK TO START ON TUBE FEEDINGS, TF TO BE STARTED WHEN DELIVERED PATIENT REMAINS OFF SEDATION, NO YET OPENING EYES OR FOLLOWING COMMANDS.
[2020-02-14] MEDS ORDERED: Glucerna 1.2 Cal 1Liter BOTTLE GT SCH (16:00)
--- NOTE | 2020-02-14 16:00 | NUR ---
Cooling Measures applied. Patient currently has temp of 101.4 , cooling measures in place.
--- NOTE | 2020-02-14 16:30 | NUR ---
WOUND CARE NURSE AT BEDSIDE SKIN ASSESSED. DRESSING CHANGED. COMPLETE LINEN CHANGE DONE. PT TOLERATED WELL.
--- NOTE | 2020-02-14 16:30 | NUR ---
RECTAL THERMOMETER RECTAL THERMOMETER PLACED. TEMP READING 101.. COOLING MEASURES IN PLACE.
--- NOTE | 2020-02-14 16:39 | NUR ---
WOUND CARE NOTE: New wound care request received regarding skin integrity issue that are noted upon patient's arrival to ICU. Patient is 70 y/o female with admitting diagnosis of ALOC, Possible GI Bleed. Patient is resting on air mattress in ICU Rm. 108. She's intubated, sedated and mechanically ventilated. Patient appears to be in no pain using Alvares Byers Faces Pain Scale. Her Elbert score is 9. Skin assessment done with the assistance of patient's nurse, ILDEFONSO Green. Patient's L distal forearm noted with 1x0.5cm open partial thickness skin tear. Wound is red with petechiae to bilateral forearm. Cleansed L forearm skin tear with NS,patted dry with gauze, applied Thera honey gel and covered with Opti foam gentle dressing. Patient came in with moisture associated skin damage to bilateral buttocks, seen by solder cream maker Mayra on 02/09/20 in ED. Patient has rectal tube in placed with dark liquid stools in tubing and in collection bag. MASD looks improving with dry peeling skin however patient developed DTI (Deep Tissue Injury to R Sacrum measuring 9x7cm. Wound is dark red/maroon. Vivienne care given, applied Z Guard cream per MD order. New photograph of skin issue are taken for reference. Patient tolerated well. Repositioned for comfort facing her Rt. side, redistributed pressure points with pillows. ILDEFONSO Green at bedside. RECOMMENDATION: Q3Days/PRN dressing change to Lt forearm skin tear per MD order, continuation of all other wound care order prescribed by MD, continue with skin/wound plan of care, continue monitoring by wound care while patient is hospitalized. Addendum: 02/14/20 at 1829 by Irene Nunez RN Amended: Links added.
[2020-02-14] MEDS: fentaNYL Drip 2500mCg/250mlNS 250 ML IV SCH (17:00)
[2020-02-14] MEDS ORDERED: WARFARIN SODIUM 2 MG TAB PO ONE (17:00)
--- NOTE | 2020-02-14 18:46 | NUR ---
Nutrition Tube feedings held as patient is to be started on a new bag of TPN as order was entered for TF after bag mixed. Tpn to resume overnight, pt NPO after midnight for cpap in a.m. Will report to oncoming nurse.
--- NOTE | 2020-02-14 18:48 | NUR ---
Resp. status Patient tolerating ventilator, RR 20-24 breaths per min. Fent at low dose to remain. Patient noted to open eyes to painful stimuli. VSS.
--- NOTE | 2020-02-14 19:45 | NUR ---
OPENING NOTE RECEIVED REPORT FROM JASMYN FREGOSO AND ASSUMED CARE OF PT. SPECIALTY MATTRESS IN PLACE. PT IS MECHANICALLY VENTILATED AND LIGHTLY SEDATED/DROWSY ON 25 MCG OF FENT. VITAL SIGNS STABLE AT THIS TIME WITH NO S/S OF DISTRESS NOTED. TPN RUNNING PER ORDERS. ATKINS CATHETER IN PLACE AND DRAINING APPROPRIATELY. COOLING MEASURES REMAIN IN PLACE FOR ELEVATED TEMPERATURE. WILL CONTINUE TO MONITOR AND ASSESS PT.
[2020-02-14] MEDS ORDERED: TPN PER PHARMACY IV NR ×10 (20:00)
--- NOTE | 2020-02-14 22:45 | NUR ---
AWAITING RADIOLOGY TO ARRIVE TO UNIT FOR STAT CHEST XRAY. CALLED X4 WITH NO ANSWER.
[2020-02-15] VITALS (89 sets, daily range): BP systolic 99–162; BP diastolic 33–83
--- NOTE | 2020-02-15 02:01 | NUR ---
PT CARE GAVE PT BED BATH WITH FULL ARTURO CHANGE. SKIN ASSESSED WITH NO NEW CHANGES AT THIS TIME. OPTIFOAMS ARE CLEAN/DRY/ INTACT. PT TOLERATED TURNING WELL WITH NO S/S OF DISTRESS. ORAL CARE DONE AND PT TURNED. TEMPERATURE ELEVATED AT 101.4 RECTALLY. COOLING MEASURES REMAIN IN PLACE- WILL ADMIN TYLENOL PER ORDERS.
[2020-02-15] MEDS: ACETAMINOPHEN 650 mg PER 20 mL UD GT PRN ×2 (02:03→13:30)
--- NOTE | 2020-02-15 03:39 | NUR ---
PT PLACED BACK ON 100% FI02 BY RT FOR SATS 82-84% AND MAINTAINING. PT SUCTIONED ORALLY AND ET TUBEX3 WITH MINIMAL SECRETIONS NOTED. ON 100% PT SATS ARE NOW 91%. LUNGS ARE COARSE SOUNDING BUT REMAIN CONSISTENT WITH PT BASELINE.
[2020-02-15 05:32] LABS: Eosinophils # (auto) 0.4 10 ^3/uL (0-0.8); Eosinophils % (auto) 5.3 % (0.0-7.0); Hemoglobin 8.1 g/dL (12.2-16.2); Lymphocytes # (auto) 1.5 10 ^3/uL (0.4-5.4); Lymphocytes % (auto) 19.9 % (10.0-50.0)
[2020-02-15 05:35] LABS: Basophils # (auto) 0.1 10 ^3/uL (0-0.2); Basophils % (auto) 0.8 % (0.0-2.0); Hematocrit 24.7 % (36.0-46.0); Mean Corpuscular Hemoglobin 31.1 pg (28.0-32.0); Mean Corpuscular Hgb Conc. 32.7 g/dL (32.0-36.0); Mean Corpuscular Volume 95.4 fL (80.0-100.0); Monocytes # (auto) 0.6 10 ^3/uL (0-1.3); Monocytes % (auto) 8.4 % (0.0-12.0); Neutrophils # (auto) 5.1 10 ^3/uL (1.6-8.6); Neutrophils % (auto) 65.6 % (37.0-80.0); Platelet Count (auto) 190 10^3/uL (140-450); Red Blood Cells 2.59 10^6/uL (4.0-5.20); Red Cell Distribution Width 14.8 % (11.8-14.3); White Blood Cell 7.7 10^3/uL (4.4-10.8)
[2020-02-15] MEDS: DexMEDEtomidine 400 MCG in D5W 5% 96 ML IV SCH (05:41)
[2020-02-15 05:47] LABS: INR 1.63 (0.9-1.15); Partial Thromboplastin Time 32.2 sec (23.64-32.05)
[2020-02-15] MEDS: InsuLIN REG 1unit/0.01ml Soln (100units/ml) SC SCH ×2 (05:53→11:28)
[2020-02-15] MEDS: ACCU-CHEK COMFORT CURVE STRIP VI SCH ×2 (05:53→11:28)
[2020-02-15 05:57] LABS: Potassium 4.1 mmol/L (3.5-5.1)
[2020-02-15 06:12] LABS: Albumin 1.7 g/dL (3.4-5.0); BUN/Creatinine Ratio 27.3; Bilirubin, Total 0.2 mg/dL (0.2-1.0); Calcium 7.9 mg/dL (8.5-10.1); Magnesium 2.4 mg/dL (1.6-2.6); Phosphorus 2.8 mg/dL (2.5-4.90); Total Protein 5.2 g/dL (6.4-8.2)
[2020-02-15] MEDS: ALBUTEROL SULF 2.5 MG/0.5ML(0.5%) NEB SOLN NEB SCH ×3 (06:18→18:37)
--- NOTE | 2020-02-15 06:24 | NUR ---
Respiratory note: RECEIVED PATIENT ON V14 ESPRIT VENT ORALLY INTUBATED WITH AN 8.0 ETT SECURED VIA CARLI AT THE 24CM MARKING AT THE LIP, AND MECHANICALLY VENTILATED WITH THE CHARTED SETTINGS. SPO2 100%, LUNG SOUNDS CLEAR T/O, NO SECRETIONS WHEN SUCTIONED. SKIN IS WARM/DRY TO THE TOUCH AND IS INTACT NEAR CARLI SITE. PITTING EDEMA NOTED IN BILATERAL UPPER EXTREMITIES, NONE NOTED IN LOWER. LEG SEQUENTIALS IN PLACE AND OPERATIONAL. NO NEW AM CXR TO ASSESS. PATIENT IS RESTING COMFORTABLY AND TOLERATING VENT WELL, NO CHANGES MADE. VENT PLUGGED INTO RED OUTLET AND ALL ALARMS ARE SET AND AUDIBLE. WILL CONTINUE TO ASSESS PATIENT WELL VENTILATOR FUNCTION. [facility] RUN INLINE.
--- NOTE | 2020-02-15 08:00 | NUR ---
Family updated on pt status Family of MICHELLE PRESTON updated on patient's status and condition. All questions and concerns addressed. Manuel verbalized understanding.
--- NOTE | 2020-02-15 08:24 | NUR ---
Assessment Patient pending cpap trial. Fent off for sedation vacation. Precedex remains at low dose. (See iv spreadsheet). Patient intubated, no yet opening eyes, no following commands. Small lesion noted to tongue. Oral care provided. Physical assessment completed, am care provided. Tube feedings order to remain on hold for cpap trial. TPN remain in place to [facility]. Site cdi. Patient turned to off load pressure from sacrum. Will continue to reposition at least every 2 hrs to prevent further skin breakdown. Cooling measures remain in place. See interventions. Bed in lowest position. Bed alarm on. Will continue to monitor.
[2020-02-15] MEDS: MUPIROCIN 2% OINT 15gm or 22gm EACHNOSTRI SCH ×2 (09:02→22:14)
[2020-02-15] MEDS: LINEZOLID 600MG/300ML 300 ML IV SCH ×2 (09:02→22:14)
[2020-02-15] MEDS: MEROPENEM 1GM IVPB 100 ML IV SCH ×2 (09:02→15:18)
[2020-02-15] MEDS: PANTOPRAZOLE 40 MG/10 ML VIAL INJ IV SCH ×2 (09:02→22:13)
[2020-02-15] MEDS: NYSTATIN TOPICAL POWDER 15GM TOP SCH ×2 (09:03→22:14)
--- NOTE | 2020-02-15 09:52 | NUR ---
CARBON SETTER AT BEDSIDE.
[2020-02-15] MEDS: FLUCONAZOLE 200MG/100ML 100 ML IV SCH (11:26)
--- NOTE | 2020-02-15 11:30 | NUR ---
Airline Reservationist at bedside Md rounds made with Gal at bedside. Patient to remain on current settings. Cpap trial if patient wakes up. Precedex stopped at this time as patient remains sedated.
--- NOTE | 2020-02-15 11:45 | NUR ---
Cooling Measures applied. Patient currently has temp of 101.7 , cooling measures in place.
--- NOTE | 2020-02-15 13:00 | NUR ---
Patient not awake for cpap trial. TF started via Ng after placement verification via auscultation. TPN to be tapered. Rx aware.
--- NOTE | 2020-02-15 13:00 | NUR ---
Cooling Measures applied. Patient currently has temp of 101.7 , cooling measures in place, Prn Tylenol given.
[2020-02-15] MEDS: MIDAZOLAM DRIP 50 mg/50mL 50 ML IV SCH (13:38)
--- NOTE | 2020-02-15 14:19 | NUR ---
MD JANETTE PRESLEY AT BEDSIDE. UPDATED ON PATIENTS STATUS. MD AWARE KENNY DENNIS REQUESTED TO BE UPDATED. SEE NEW ORDERS.
--- NOTE | 2020-02-15 14:31 | NUR ---
Dr. Taylor updated on patients status Md aware of current Hgb. No bleeding noted at this time. Per md stopped Coumadin and start patient on lovenox per Dr. Hughes
[2020-02-15] MEDS: fentaNYL Drip 2500mCg/250mlNS 250 ML IV SCH (15:23)
--- NOTE | 2020-02-15 16:23 | NUR ---
Central Line Dressing Changes Dressing change done with a sterile technique. Cleansed with chloraprep scrub. Bio-patch as available. Occlusive dressing applied. See e-MAR for medications given during this visit.
--- NOTE | 2020-02-15 16:25 | NUR ---
Neuro Patient opening eyes to voice, does not following command, no tracking. Will continue to monitor. RR noted to increase back to 23-28.
--- NOTE | 2020-02-15 16:46 | NUR ---
EEG- Electroencephalogram completed on 02/15/2020.
[2020-02-15] MEDS ORDERED: WARFARIN SODIUM 2 MG TAB PO ONE (17:00)
--- NOTE | 2020-02-15 18:00 | NUR ---
Sedation Patient triggering low tv, more arousable to voice and light touch. Patients RR 25-30. Fent. increased slightly, precedex to be started in a.m for possible cpap trial. R.t aware.
--- NOTE | 2020-02-15 18:00 | NUR ---
Nutrition Tube feedings tolerated at 20ml/hr. 5cc of gastric residual noted. Feedings increased to 30ml/hr with aspiration precautions in place. TPN to be stopped at 2200.
[2020-02-15] MEDS ORDERED: TPN PER PHARMACY IV NR ×9 (20:00)
[2020-02-15] MEDS: ENOXAPARIN SOD 100 MG/1 ML SYRINGE SC SCH (22:14)
[2020-02-16] VITALS (89 sets, daily range): BP systolic 101–175; BP diastolic 37–82
[2020-02-16] MEDS: ALBUTEROL SULF 2.5 MG/0.5ML(0.5%) NEB SOLN NEB SCH ×4 (00:13→18:06)
[2020-02-16] MEDS: ACETAMINOPHEN 650 mg PER 20 mL UD GT PRN ×3 (01:02→22:31)
[2020-02-16] MEDS: DexMEDEtomidine 400 MCG in D5W 5% 96 ML IV SCH ×2 (01:38→22:16)
[2020-02-16 07:06] LABS: Albumin 1.9 g/dL (3.4-5.0); Calcium 8.3 mg/dL (8.5-10.1); Magnesium 2.2 mg/dL (1.6-2.6)
[2020-02-16 07:08] LABS: Basophils # (auto) 0.1 10 ^3/uL (0-0.2); Basophils % (auto) 0.6 % (0.0-2.0); Eosinophils # (auto) 0.3 10 ^3/uL (0-0.8); Eosinophils % (auto) 2.9 % (0.0-7.0); Hematocrit 27.1 % (36.0-46.0); Hemoglobin 8.9 g/dL (12.2-16.2); Lymphocytes # (auto) 1.6 10 ^3/uL (0.4-5.4); Mean Corpuscular Hemoglobin 31.3 pg (28.0-32.0); Mean Corpuscular Volume 95.1 fL (80.0-100.0); Monocytes # (auto) 0.8 10 ^3/uL (0-1.3); Monocytes % (auto) 8.7 % (0.0-12.0); Neutrophils # (auto) 6.3 10 ^3/uL (1.6-8.6); Neutrophils % (auto) 69.8 % (37.0-80.0); Nucleated Red Blood Cells % 0.1 %; Platelet Count (auto) 234 10^3/uL (140-450); Red Blood Cells 2.85 10^6/uL (4.0-5.20); Red Cell Distribution Width 14.7 % (11.8-14.3); White Blood Cell 9.1 10^3/uL (4.4-10.8)
[2020-02-16 07:10] LABS: BUN/Creatinine Ratio 29.7; Bilirubin, Total 0.3 mg/dL (0.2-1.0); Phosphorus 3.4 mg/dL (2.5-4.90)
[2020-02-16] MEDS: MEROPENEM 1GM IVPB 100 ML IV SCH ×3 (08:32→15:55)
--- NOTE | 2020-02-16 10:30 | NUR ---
DR. Alpesh KIRBY AT BEDSIDE: ORDERS MD UPDATED ON PT'S INCREASED RR FROM EARLIER THIS AM. INFORMED SEDATION HAD TO BE PUT BACK ON PATIENT. CPAP TRIAL IN AM. CONTINUE CARE.
[2020-02-16] MEDS: NYSTATIN TOPICAL POWDER 15GM TOP SCH ×2 (10:54→22:28)
[2020-02-16] MEDS: MUPIROCIN 2% OINT 15gm or 22gm EACHNOSTRI SCH ×2 (10:54→22:29)
[2020-02-16] MEDS: PANTOPRAZOLE 40 MG/10 ML VIAL INJ IV SCH ×2 (11:03→22:27)
[2020-02-16] MEDS: ENOXAPARIN SOD 100 MG/1 ML SYRINGE SC SCH ×2 (11:03→22:27)
[2020-02-16] MEDS: LINEZOLID 600MG/300ML 300 ML IV SCH ×2 (11:03→22:27)
[2020-02-16] MEDS: FLUCONAZOLE 200MG/100ML 100 ML IV SCH ×2 (12:26→13:06)
--- NOTE | 2020-02-16 12:30 | NUR ---
COOLING MEASURES APPLIED AT THIS TIME: 101.4 TEMP VIA RECTAL PROBE. COOLING MACHINE AND FAN PLACED ON PATIENT. PATIENT ALSO GIVEN TYLENOL PER MD ORDER. CONTINUE CARE.
--- NOTE | 2020-02-16 13:15 | NUR ---
DR. PRESLEY AT BEDSIDE: ORDERS MD UPDATED ON PT'S CURRENT STATUS, LABS AND POC FOR TODAY. MD WANTING STAT BLOOD CULTURES DUE TO CURRENT TEMP 101.4. ORDERS TO BE CARRIED OUT. CONTINUE CARE.
[2020-02-16] MEDS: fentaNYL Drip 2500mCg/250mlNS 250 ML IV SCH (13:37)
[2020-02-16] MEDS: MIDAZOLAM DRIP 50 mg/50mL 50 ML IV SCH ×2 (13:37→20:59)
--- NOTE | 2020-02-16 14:01 | NUR ---
Nutrition Consult/Followup Notes Wt: 97.2 kg Pt`s intubated sedated with no family by bedside when rounded this am. Pt is currently NPO with PN support decreased to 16.745 ml/hr providing 378 kcals and 23 gm proteins, and 286 NPCs. This provides 23-27% of energy needs and 26-28% of protein needs. Will continue to monitor PO status, skin status, pertinent labs and weight trends. Will f/u in 2-3 days. Est Energy needs: 7009-0123 kcals (17-20 kcal/kgBW), Est Protein needs: 82-90 gms/day (1.0-1.1 gm/kgBW). Will continue to monitor and reassess prn.. LABS: GLUC 107H, Alb 1.9L, Ca 8.3L GI: Pt had 2 BM 02/12 per RN note BS: 12 high risk, per RN doc. Please refer to wound assessment report for full details. PES: 1) Increased nutrient needs aeb pt sedated, NPO pt with no PO intake 2) Altered nutrition related lab values elev LFTs, elev RFTs, low GFR, hyperglycemia, mod hypoalbuminemia r/t current medical condition Comments Will continue to closely monitor pertinent labs, PO intake, and skin status prn. Will followup in 2-3 days 1) Continue to closely monitor pt NPO status. 2) Gradually advance pt to oral diet when medically feasible and as tolerated. 3) Consider a daily MVI with 500mg VitC BID. 4) Continue PN support to meet > 75% of needs. 5) Continue current plan of care
--- NOTE | 2020-02-16 16:39 | NUR ---
PT PLACED BACK ON PREVIOUS VENT SETTINGS DUE TO BREATH STACKING ON SIMV. PT CURRENTLY ON AC/VC, RR 14, VT 450, PEEP 6, 30% FIO2. ILDEFONSO JAIMES MADE AWARE. WILL CONTINUE TO MONITOR PT.
--- NOTE | 2020-02-16 18:06 | NUR ---
Respiratory note: RECEIVED PT ON VENT V14, VENT CONNECTED TO RED OUTLET AND O2 SOURCE ALARMS ARE SET AND AUDIBLE. AMBU BAG AND MASK AT BEDSIDE. BS ARE FINE COURSE, SXD VIA ETT FOR SCANT NAVARRETE, PT BITTING ON TUBE WHEN IS BEING STIMULATED. MED NEB TX GIVEN INLINE WITHOUT ADVERSE REACTION NOTED. PTS CURRENT TEMP READS 99.6F. WILL CONTINUE TO MONITOR.
--- NOTE | 2020-02-16 20:17 | NUR ---
Respiratory note: AT BEDSIDE FOR ROUTINE VENT CHECK. RN JOPHY AT BESIDE. PTS CURRENT BODY TEMP READS 100.1F. NO VENT CHANGES MADE WILL CONTINUE TO MONITOR.
--- NOTE | 2020-02-16 21:00 | NUR ---
SEDATION VACATION HELD PATIENT IS ON MODERATE SEDATION BUT TACHYPNEIC IN HIGH 20'S SO SEDATION VACATION HELD.
--- NOTE | 2020-02-16 22:15 | NUR ---
Respiratory note: AT BEDSIDE FOR ROUTINE VENT CHECK. PTS CURRENT BODY TEMP READS 101.8F. NO VENT CHANGES MADE WILL CONTINUE TO MONITOR.
--- NOTE | 2020-02-16 22:30 | NUR ---
Patient bathe/linen change Patient given complete bath with chlorhexidine wipes. Skin integrity assessed for any changes. Linens changed. Patient repositioned for comfort.
--- NOTE | 2020-02-16 22:30 | NUR ---
HYPERTHERMIA TYLENOL GIVEN.COOLING MEASURES DONE.
[2020-02-17] VITALS (97 sets, daily range): BP systolic 95–158; BP diastolic 35–92
[2020-02-17] MEDS: MEROPENEM 1GM IVPB 100 ML IV SCH ×3 (00:06→17:03)
[2020-02-17] MEDS: ALBUTEROL SULF 2.5 MG/0.5ML(0.5%) NEB SOLN NEB SCH ×4 (00:22→18:00)
--- NOTE | 2020-02-17 00:22 | NUR ---
Respiratory note: AT BEDSIDE FOR ROUTINE VENT CHECK. BS ARE FINE COURSE SXD FOR SCANT NAVARRETE RETURN, MED NEB TX GIVEN INLINE, NO ADVERSE REACTION NOTED. NO VENT CHANGES MADE WILL CONTINUE TO MONITOR.
--- NOTE | 2020-02-17 02:07 | NUR ---
Respiratory note: AT BEDSIDE FOR ROUTINE VENT CHECK. CURRENT BODY TEMP READS 100.3F. NO VENT CHANGES MADE WILL CONTINUE TO MONITOR.
[2020-02-17] MEDS: MIDAZOLAM DRIP 50 mg/50mL 50 ML IV SCH ×5 (03:34→22:00)
--- NOTE | 2020-02-17 07:13 | NUR ---
Received report from Galen RN, p.m. nurse. Patient sedated on Versed 8 mg & Fentanyl 200 mg on mechanical vent TV 450 AC 14 FIO2 30% PEEP 6. Patient is V-paced 100's. Patients feet/knees mottled over last couple of datys. Patient tube feeding NG 30ml/hr with high residual during p.m. shift. Grewal catheter to gravity, low urine output p.m. shift of 200 mL. Left forearm skin tear & right sacrum DTI. Patient has rights IJ 3x lumen CVC. Will continue to monitor.
[2020-02-17] MEDS: MUPIROCIN 2% OINT 15gm or 22gm EACHNOSTRI SCH (09:04)
[2020-02-17] MEDS: PANTOPRAZOLE 40 MG/10 ML VIAL INJ IV SCH ×2 (09:05→20:56)
[2020-02-17] MEDS: ENOXAPARIN SOD 100 MG/1 ML SYRINGE SC SCH ×2 (09:05→20:57)
--- NOTE | 2020-02-17 09:08 | NUR ---
RN completed a.m. assessment, patients lower extremities rigid to lateral movement at hips and knees. Will continue to monitor.
--- NOTE | 2020-02-17 09:25 | NUR ---
Report given to Marilyn FREGOSO who will assume care.
--- NOTE | 2020-02-17 09:30 | NUR ---
Opening Shift Note Assumed care of patient, intubated and sedated. No S/S of distress/SOB or pain. See interventions for complete assessment. Bed locked on low position, side rails up x2, bed alarms on at all times, will continue to monitor for changes Q1hr and PRN.
--- NOTE | 2020-02-17 09:35 | NUR ---
Dr Rothman at bedside, updated on patient's status. Patient seen and examined. Will carry out new orders.
--- NOTE | 2020-02-17 09:35 | NUR ---
Both sole of patient's feet colored purple, will inform MD.
[2020-02-17] MEDS: LINEZOLID 600MG/300ML 300 ML IV SCH ×2 (09:36→20:57)
[2020-02-17] MEDS: NYSTATIN TOPICAL POWDER 15GM TOP SCH ×2 (09:37→20:57)
--- NOTE | 2020-02-17 10:00 | NUR ---
Patient temperature 100.1 orally, patient on cooling blanket. Will continue to monitor.
--- NOTE | 2020-02-17 10:25 | NUR ---
Received call from patient's son Manuel who's able to provide password. Updated on patient's status and POC, verbalized understanding. All questions and concerns addressed.
--- NOTE | 2020-02-17 12:50 | NUR ---
Covid swab sent to lab
[2020-02-17] MEDS: FLUCONAZOLE 200MG/100ML 100 ML IV SCH (13:01)
--- NOTE | 2020-02-17 13:30 | NUR ---
Patient having moderate amount of creamy to mcgregor to brownish oral secretions. Tube feeding held. Connected NGT to LONNIE, Dr Hughes aware. Will continue to monitor patient.
--- NOTE | 2020-02-17 14:41 | NUR ---
Dr Hughes at bedside, updated on patient's status. Informed of purple discoloration of patient feet (sole). Patient seen and examined. Will carry out new orders.
[2020-02-17] MEDS: fentaNYL Drip 2500mCg/250mlNS 250 ML IV SCH (16:43)
--- NOTE | 2020-02-17 17:31 | NUR ---
Patient's urine output 100ml for the past 10 hours, Dr Hughes informed. Received telephone order for Nephrology consult, read back and verified. Will carry out.
[2020-02-17] MEDS: DexMEDEtomidine 400 MCG in D5W 5% 96 ML IV SCH (18:54)
[2020-02-17] MEDS ORDERED: FUROSEMIDE 40 MG/4 ML VIAL IV ONE (19:00)
--- NOTE | 2020-02-17 19:30 | NUR ---
REPORT RECEIVED, ASSUMED CARE.
[2020-02-17] MEDS: ACETAMINOPHEN 650 mg PER 20 mL UD GT PRN (20:10)
[2020-02-18] VITALS (96 sets, daily range): BP systolic 93–137; BP diastolic 20–59
[2020-02-18] MEDS: MEROPENEM 1GM IVPB 100 ML IV SCH ×3 (00:26→15:13)
[2020-02-18] MEDS: MIDAZOLAM DRIP 50 mg/50mL 50 ML IV SCH ×4 (05:09→23:34)
[2020-02-18 05:49] LABS: Calcium 8.1 mg/dL (8.5-10.1); Potassium 4.9 mmol/L (3.5-5.1)
[2020-02-18 05:52] LABS: BUN/Creatinine Ratio 30.6
[2020-02-18] MEDS: ALBUTEROL SULF 2.5 MG/0.5ML(0.5%) NEB SOLN NEB SCH ×4 (07:08→20:42)
--- NOTE | 2020-02-18 08:00 | NUR ---
Opening Shift Note Assumed care of patient, intubated and sedated. No S/S of distress/SOB or pain. LT nare NGT to LIS, no drain at this time. See interventions for complete assessment. Bed locked on low position, side rails up x2, bed alarms on at all times, will continue to monitor for changes Q1hr and PRN.
--- NOTE | 2020-02-18 09:25 | NUR ---
Dr Broussard at bedside, updated on patient's status. Patient seen and examined. Will carry out new orders.
[2020-02-18] MEDS: NYSTATIN TOPICAL POWDER 15GM TOP SCH ×2 (09:30→22:00)
[2020-02-18] MEDS: PANTOPRAZOLE 40 MG/10 ML VIAL INJ IV SCH ×2 (09:30→22:00)
[2020-02-18] MEDS: LINEZOLID 600MG/300ML 300 ML IV SCH ×2 (09:30→22:00)
[2020-02-18] MEDS: ENOXAPARIN SOD 100 MG/1 ML SYRINGE SC SCH ×2 (09:30→22:00)
--- NOTE | 2020-02-18 10:26 | NUR ---
Dr Rawls at bedside, updated on patient's status. Patient seen and examined. Will carry out new orders.
[2020-02-18] MEDS ORDERED: SODIUM CHLORIDE 0.9% 1,000 ML IV ONE (12:00)
--- NOTE | 2020-02-18 12:16 | NUR ---
Nutrition Consult/Followup Notes Wt: 105.6 kg 02/17, pt wt has been 95-97kg during hospital course, consider re-weighing pt. Wt: 98kg 02/16 Pt`s intubated sedated with no family by bedside when rounded this am. Pt no longer receiving TPN, pt transitioned to TF with Glucerna 1.2 @ 30 ml/hr. Pt received 240 ml Glucerna 1.2 02/16 per RN nutrition note, per RN note pt with poor tolerance of TF aeb pt with high residuals . Will continue to monitor TF tolerance and need for alternate nutrition. Est Energy needs: 3190-1016 kcals (17-20 kcal/kgBW), Est Protein needs: 82-90 gms/day (1.0-1.1 gm/kgBW). Will continue to monitor and reassess prn.. LABS: BUN 44H, Creat 1.44H, Ca 8.1L, Alb 1.9L GI: Pt had 2 BM 02/12 per RN note, 800 ml gastric drainage 02/17 BS: 9 high risk, per RN doc. Please refer to wound assessment report for full details. PES: 1) Increased nutrient needs aeb pt sedated, NPO pt with no PO intake 2) Altered nutrition related lab values elev LFTs, elev RFTs, low GFR, hyperglycemia, mod hypoalbuminemia r/t current medical condition Comments Will continue to closely monitor pertinent labs, PO intake, and skin status prn. Will followup in 2-3 days 1) Continue to closely monitor pt NPO status. 2) Gradually advance pt to oral diet when medically feasible and as tolerated. 3) Consider a daily MVI with 500mg VitC BID. 4) Continue PN support to meet > 75% of needs. 5) Continue current plan of care
[2020-02-18] MEDS: FLUCONAZOLE 200MG/100ML 100 ML IV SCH (12:41)
[2020-02-18] MEDS: FUROSEMIDE 40 MG/4 ML VIAL IV SCH ×2 (12:46→18:25)
[2020-02-18] MEDS: ALBUMIN 25% 100 ML IV SCH ×2 (12:47→20:00)
--- NOTE | 2020-02-18 12:47 | NUR ---
Urine sample sent to lab.
[2020-02-18 13:33] LABS: Sodium Urine 19 mmol/L (40-220)
[2020-02-18 13:35] LABS: Creatinine, Urine 123 mg/dL (30.0-125.0)
[2020-02-18] MEDS: SODIUM CHLORIDE 0.9% 1,000 ML IV SCH (15:00)
[2020-02-18] MEDS: fentaNYL Drip 2500mCg/250mlNS 250 ML IV SCH (15:09)
[2020-02-18] MEDS: DexMEDEtomidine 400 MCG in D5W 5% 96 ML IV SCH (15:32)
--- NOTE | 2020-02-18 17:05 | NUR ---
Dr Hughes at bedside, updated on patient's status. Patient seen and examined. Received order for bilateral lower extremity arterial ultrasound to rule out PAD. Read back and verified. Will carry out.
--- NOTE | 2020-02-18 17:16 | NUR ---
Dr Costa at bedside, updated on patient's status. Patient seen and examined. Will carry out new orders.
--- NOTE | 2020-02-18 18:15 | NUR ---
BLE US being done at bedside.
[2020-02-18 18:49] LABS: Basophils # (auto) 0 10 ^3/uL (0-0.2); Eosinophils # (auto) 0.1 10 ^3/uL (0-0.8)
[2020-02-18 18:51] LABS: Basophils % (auto) 0.3 % (0.0-2.0); Eosinophils % (auto) 0.5 % (0.0-7.0); Hematocrit 20.2 % (36.0-46.0); Lymphocytes # (auto) 0.9 10 ^3/uL (0.4-5.4); Lymphocytes % (auto) 5.8 % (10.0-50.0); Mean Corpuscular Hemoglobin 30.7 pg (28.0-32.0); Mean Corpuscular Hgb Conc. 32.4 g/dL (32.0-36.0); Monocytes # (auto) 0.8 10 ^3/uL (0-1.3); Monocytes % (auto) 5.2 % (0.0-12.0); Neutrophils # (auto) 14.1 10 ^3/uL (1.6-8.6); Neutrophils % (auto) 88.2 % (37.0-80.0); Nucleated Red Blood Cells % 0.1 %; Platelet Count (auto) 216 10^3/uL (140-450); Red Blood Cells 2.13 10^6/uL (4.0-5.20); Red Cell Distribution Width 14.8 % (11.8-14.3)
--- NOTE | 2020-02-18 18:56 | NUR ---
Received call from laboratory, per Irene patient's hemoglobin is 6.5. Dr Hughes informed. Received telephone order to transfuse one unit of packed cells. Orders read back and verified. Will carry out.
[2020-02-18 18:58] LABS: Hemoglobin 6.5 g/dL (12.2-16.2)
--- NOTE | 2020-02-18 19:42 | NUR ---
ADMITTED WITH ALOC. CT OF BRAIN DONE. INTUBATED IN ER ON 02/09/2020. ON ASSIST CONTROL MODE. NO CURRENT ORDERS FOR CPAP. LEFT NARE NGT CLAMPED. ATKINS IN PLACE TO DOWN DRAIN BAG. HAS SKIN ISSUES: DTI ON SACRUM. SKIN TEAR ON LEFT FOREARM. SEDATION: VERSED AND FENTANYL. HAS A RIJ TLC. PERMANENT PACEMAKER : PACING 100%. ECHOCARDIOGRAM: EF 60%. 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 PRESENT ORDERS: TRANSFUSE 1 UPC. PENDING RESULTS FROM AN ARTERIAL RIGHT LOWER EXTREMITY US. DOPPLER PULSE IN RIGHT LOWER EXTR.
--- NOTE | 2020-02-18 20:00 | NUR ---
REPOSITIONED TO BACK. ORAL CARE DONE. MINIMAL CLEAR SECRETIONS. NOTHING SUCTIONED FROM THE ETT. NGT CLAMPED. RESIDUAL 2CC. LUNGS CLEAR. ORALLY INTUBATED. ABDOMEN ROUND AND SOFT. URINE OUTPUT 240CC YELLOW WITH SEDIMENT. FLEXASEAL HAS 200CC OF BROWN LIQUID . NO LEAK AROUND THE FLEXASEAL UNIT. RIGHT FOOT COOL WITH DARKENED SLIGHTLY DARKENED TOES. LEFT FOOT WARM, RED, AND HAS SLIGHTLY DARKENED TOES. UNABLE TO FEEL PULSES. BOTH FEET ARE EDEMETOUS. NO SCDS. CUFF ON RIGHT LOWER LEG. NOTED ARTERIAL ULTRASOUND OF LOWER EXTREMITIES. PATIENT IS ON LOVENOX. HEELS OFF BED.
--- NOTE | 2020-02-18 22:00 | NUR ---
REPOSITIONED TO LEFT SIDE. DID NOT WAKE UP. NARCISO. NOTHING SUCTIONED FROM THE ETT. ORAL CARE DONE. NOTHING WITHDRAWN FROM THE NGT. FLEXASEAL DRAINING BROWN WATERY LIQUID. NO LEAKAGE AT FLEXASEAL SIGHT. REMAINS 100% V PACED. ABDOMEN ROUND AND SOFT. DOPPLER PULSES : FEET. RADIALS PALPABLE. LEFT LOWER LEG COOL. RIGHT FOOT COOL.
[2020-02-19] VITALS (99 sets, daily range): BP systolic 98–169; BP diastolic 25–75
--- NOTE | 2020-02-19 | NUR ---
UNIT OF BLOOD READY. NOTHING SUCTIONED FROM THE ETT. NO NGT RESIDUAL. URINE OUTPUT LOW. TIPS OF BOTH SETS OF TOES STILL RED AND DARKENED. LEFT LOWER LEG COOL. RIGHT FOOT COOL. REMAINS 100% VPACED WITH A RANGE OF 96-105. AC OF 14, RR 17-20. O2 SAT 99-100%.
--- NOTE | 2020-02-19 01:00 | NUR ---
UNIT OF PACKED CELLS STARTED.
[2020-02-19] MEDS: ALBUTEROL SULF 2.5 MG/0.5ML(0.5%) NEB SOLN NEB SCH ×4 (01:05→18:10)
--- NOTE | 2020-02-19 02:00 | NUR ---
NO REACTION TO BLOOD. VITAL SIGNS STABLE. NO RISE IN TEMPERATURE.
--- NOTE | 2020-02-19 03:00 | NUR ---
CHG BATH. COMPLETE LINEN CHANGE. LEFT FOREARM SKIN TEAR DRESSING REMOVED., SMALL AMOUNT OF RED DRNG. 2 OPEN AREAS. CLEANED WITH CHLOROPREP AND REDRESSED. ISABEL AREA REDNESS. FLEXASEAL HAS A GOOD SEAL. SMALL AMOUNT OF DARK GREEN DRNG. NO RESIDUAL FROM THE NGT.
[2020-02-19] MEDS: fentaNYL Drip 2500mCg/250mlNS 250 ML IV SCH (04:13)
[2020-02-19] MEDS: MIDAZOLAM DRIP 50 mg/50mL 50 ML IV SCH (04:13)
[2020-02-19] MEDS: ALBUMIN 25% 100 ML IV SCH (04:15)
[2020-02-19 04:58] LABS: Basophils # (auto) 0.1 10 ^3/uL (0-0.2); Basophils % (auto) 0.6 % (0.0-2.0); Eosinophils # (auto) 0.3 10 ^3/uL (0-0.8); Eosinophils % (auto) 2.1 % (0.0-7.0); Hematocrit 23.1 % (36.0-46.0); Hemoglobin 7.6 g/dL (12.2-16.2); Lymphocytes # (auto) 1.1 10 ^3/uL (0.4-5.4); Lymphocytes % (auto) 8.4 % (10.0-50.0); Mean Corpuscular Hemoglobin 31.1 pg (28.0-32.0); Mean Corpuscular Hgb Conc. 32.9 g/dL (32.0-36.0); Mean Corpuscular Volume 94.7 fL (80.0-100.0); Monocytes # (auto) 0.7 10 ^3/uL (0-1.3); Monocytes % (auto) 5.5 % (0.0-12.0); Neutrophils # (auto) 10.8 10 ^3/uL (1.6-8.6); Neutrophils % (auto) 83.4 % (37.0-80.0); Nucleated Red Blood Cells % 0.1 %; Platelet Count (auto) 190 10^3/uL (140-450); Red Blood Cells 2.44 10^6/uL (4.0-5.20); Red Cell Distribution Width 14.2 % (11.8-14.3); White Blood Cell 12.9 10^3/uL (4.4-10.8)
[2020-02-19 05:14] LABS: Potassium 3.8 mmol/L (3.5-5.1)
[2020-02-19 05:19] LABS: BUN/Creatinine Ratio 33.1; Calcium 8.1 mg/dL (8.5-10.1); Magnesium 2.2 mg/dL (1.6-2.6); Phosphorus 4.2 mg/dL (2.5-4.90)
[2020-02-19] MEDS: FUROSEMIDE 40 MG/4 ML VIAL IV SCH ×2 (06:00→18:06)
--- NOTE | 2020-02-19 06:00 | NUR ---
VSS. NO VENTILATOR CHALLENGES. NGT OUTPUT WAS MINIMAL.URINE CONTINUES TO HAVE SEDIMENT. MINIMAL FLEXASEAL DRNG.
[2020-02-19] MEDS ORDERED: SODIUM CHLORIDE 0.9 % NEB SOLN 3ML NEB ONE ×2 (06:04→13:33)
[2020-02-19] MEDS: SODIUM CHLORIDE 0.9% 1,000 ML IV SCH ×2 (08:12→14:40)
[2020-02-19] MEDS: MEROPENEM 1GM IVPB 100 ML IV SCH ×3 (08:12→16:20)
[2020-02-19] MEDS: ENOXAPARIN SOD 100 MG/1 ML SYRINGE SC SCH ×2 (10:00→21:58)
--- NOTE | 2020-02-19 10:08 | NUR ---
Dr Broussard at bedside, updated on patient's status. Patient seen and examined. Plan to CPAP patient today.
[2020-02-19] MEDS: LINEZOLID 600MG/300ML 300 ML IV SCH ×2 (10:14→21:57)
[2020-02-19] MEDS: PANTOPRAZOLE 40 MG/10 ML VIAL INJ IV SCH ×2 (10:14→21:57)
[2020-02-19] MEDS: NYSTATIN TOPICAL POWDER 15GM TOP SCH ×2 (10:15→21:58)
--- NOTE | 2020-02-19 10:15 | NUR ---
Sedation turned off, will continue to monitor patient.
[2020-02-19] MEDS: FLUCONAZOLE 200MG/100ML 100 ML IV SCH (11:12)
--- NOTE | 2020-02-19 11:16 | NUR ---
Patient not awake enough to CPAP, will continue to monitor.
--- NOTE | 2020-02-19 11:23 | NUR ---
Dr Taylor at bedside, updated on patient's status. Patient seen and examined. Will carry out new orders.
[2020-02-19] MEDS: DexMEDEtomidine 400 MCG in D5W 5% 96 ML IV SCH (12:10)
--- NOTE | 2020-02-19 12:40 | NUR ---
Patient's temperature 100.2 rectally, cooling measures done. Will continue to monitor.
--- NOTE | 2020-02-19 12:45 | NUR ---
Patient opens eyes to voice, not following commands. Will continue to monitor.
--- NOTE | 2020-02-19 15:00 | NUR ---
Patient's temperature 101.2 rectally. Placed patient on cooling blanket. Will continue to monitor.
--- NOTE | 2020-02-19 16:33 | NUR ---
Dr Hughes at bedside, updated on patient's status. Patient seen and examined. Will carry out new orders.
[2020-02-19] MEDS ORDERED: hydrALAZINE HCL 20 MG/ML VL IV PRN (17:00)
--- NOTE | 2020-02-19 17:35 | NUR ---
Received call from patient's son Manuel who's able to provide password. Updated on patient's status and POC, verbalized understanding. All questions and concerns addressed.
--- NOTE | 2020-02-19 19:00 | NUR ---
Dr Costa at bedside, updated on patient's status. Patient seen and examined. Will carry out new orders.
--- NOTE | 2020-02-19 19:45 | NUR ---
ADMITTED WITH ALOC. CT OF BRAIN DONE. INTUBATED IN ER ON 02/09/2020. ON ASSIST CONTROL MODE. ORDERS FOR CPAP WHEN PATIENT WAKES UP. LEFT NARE NGT CLAMPED. ATKINS IN PLACE TO DOWN DRAIN BAG. HAS SKIN ISSUES: ERYTHEMA ON SACRUM. SKIN TEAR ON LEFT FOREARM. SEDATION: OFF. HAS A RIJ TLC. PERMANENT PACEMAKER : PACING 100%. ECHOCARDIOGRAM: EF 60%. 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 PEDAL PULSES WITH DOPPLER. HAND AND FEET SWELLING. LEFT LOWER LEG COOL. RIGHT FOOT COOL. FLEXASEAL . ATKINS. HOLDING TUBE FEED WHILE SEDATION IS OFF. RIJ TLC WITH CURRENT DRESSING AND BIOPATCH. NO VENTILATOR CHANGES TODAY.
--- NOTE | 2020-02-19 20:00 | NUR ---
BILATERAL MITTENS ON. OPENS EYES WHEN YOU TALK TO HER, BUT THEN SHE FALLS BACK ASLEEP READILY. REPOSITIONED TO HER LEFT SIDE. FLEXASEAL DRAINING A DARK BROWN LIQUID. GOOD SEAL AROUND THE TUBE. FOREARM EDEMA. LOWER LEG EDEMA.
--- NOTE | 2020-02-19 22:00 | NUR ---
REPOSITIONED. ORAL CARE. FLEXASEAL CHECKED, NO DRNG. ATKINS DRAINING DARKER YELLOW LIQUID. SEDIMENT CONTINUES. COOLING BLANKET OFF . TEMP 99. BEGINNING TO OPEN EYES ON OWN A LITTLE. MOVES ARMS ABOUT 10% OF STRENGTH. NOT MOVING LEGS YET. NOTHING SUCTIONED FROM THE ETT. ORAL 100% V PACED. RIJ TLC PATENT WITH A CLEAR DRY DRESSING.
[2020-02-20] VITALS (75 sets, daily range): BP systolic 97–177; BP diastolic 22–111
--- NOTE | 2020-02-20 | NUR ---
TURNED TO RIGHT SIDE. WOKE UP WHEN TURNING. THEN WENT RIGHT BACK TO SLEEP. ORAL CARE DONE. NOTHING SUCTIONED FROM THE ETT. ABDOMEN SOFT. MINIMAL DOWN THE FLEXASEAL TUBE. ATKINS HAS DARK YELLOW LIQUID TO DOWN DRAIN BAG. EDEMA PERSISTS IN ARMS AND LEGS. 100% V PACED. NARCISO. RADIAL PULSES ARE WEAK. PEDALS ARE NOT PALPABLE.BOTH FEET ARE COLD.
[2020-02-20] MEDS: ALBUTEROL SULF 2.5 MG/0.5ML(0.5%) NEB SOLN NEB SCH ×4 (00:08→18:13)
--- NOTE | 2020-02-20 02:00 | NUR ---
REPOSITIONED. NO ETT SECRETIONS. ORAL CARE DONE. ABDOMEN SOFT. NO CHANGE IN TEMPERATURE OF EXTREMITIES. BOTH FEET ARE STILL COLD. BOTTOM OF FEET ARE COLD. ONLY MAINTENANCE FLUID IS GOING. WAITING FOR HER TO WAKE UP FROM SEDATION. SLOWLY WITH STIMULATION SHE IS STAYING AWAKE LONGER. NO ATTEMPT AT LOOKING AT ME. 100% V PACED.
--- NOTE | 2020-02-20 03:29 | NUR ---
CHG BATH. LABS SENT
--- NOTE | 2020-02-20 03:44 | NUR ---
2 BLEEDING AREAS ON COCCYX. AREA CLEANED AND NEW Z GUARD AND OPTIFOAM APPLIED
[2020-02-20] MEDS: SODIUM CHLORIDE 0.9% 1,000 ML IV SCH ×2 (04:00→16:10)
[2020-02-20 04:54] LABS: BUN/Creatinine Ratio 35.3; Calcium 8.2 mg/dL (8.5-10.1); Potassium 3.5 mmol/L (3.5-5.1)
[2020-02-20] MEDS: FUROSEMIDE 40 MG/4 ML VIAL IV SCH ×2 (06:00→17:31)
--- NOTE | 2020-02-20 06:00 | NUR ---
NO CHANGE IN ASSESSMENT. PATIENT IS SLOWLY WAKING UP. RR ON VENTILATOR RANGES UP TO 30
--- NOTE | 2020-02-20 07:00 | NUR ---
REPORT RECEIVED FROM AUTOMATIC CORN GRINDER OPERATOR NURSE. PATIENT RESTING IN BED AT THIS TIME. RESPIRATIONS EVEN AND UNLABORED, INTUBATED AND OFF SEDATIONS FOR CPAP TRIAL PER MD ORDER. PATIENT OPEN EYES TO NAME, BUT DOES NOT TRACK OR FOLLOW COMMANDS AT THIS TIME. NO SIGNS OF ACUTE DISTRESS NOTED. BED IN LOW POSITION. WILL CONTINUE TO MONITOR.
[2020-02-20] MEDS: MEROPENEM 1GM IVPB 100 ML IV SCH ×3 (08:00→16:09)
[2020-02-20] MEDS: DexMEDEtomidine 400 MCG in D5W 5% 96 ML IV SCH (08:48)
[2020-02-20 09:35] LABS: Basophils # (auto) 0 10 ^3/uL (0-0.2); Eosinophils # (auto) 0 10 ^3/uL (0-0.8); Eosinophils % (auto) 0.5 % (0.0-7.0); Hemoglobin 7.8 g/dL (12.2-16.2); Monocytes # (auto) 0.5 10 ^3/uL (0-1.3); Neutrophils % (auto) 83.2 % (37.0-80.0); Nucleated Red Blood Cells % 0.2 %; Platelet Count (auto) 194 10^3/uL (140-450); Red Cell Distribution Width 14.2 % (11.8-14.3)
[2020-02-20 09:37] LABS: Basophils % (auto) 0.5 % (0.0-2.0); Hematocrit 23.3 % (36.0-46.0); Mean Corpuscular Hemoglobin 31.7 pg (28.0-32.0); Mean Corpuscular Hgb Conc. 33.5 g/dL (32.0-36.0); Mean Corpuscular Volume 94.8 fL (80.0-100.0); Monocytes % (auto) 4.8 % (0.0-12.0); Neutrophils # (auto) 7.9 10 ^3/uL (1.6-8.6); Red Blood Cells 2.46 10^6/uL (4.0-5.20); White Blood Cell 9.5 10^3/uL (4.4-10.8)
--- NOTE | 2020-02-20 10:00 | NUR ---
DR PRESLEY AT BEDSIDE TO ASSESS PATIENT. ALL ORDERS NOTED IN CHART.
--- NOTE | 2020-02-20 10:14 | NUR ---
DR KIRBY AT BEDSIDE TO ASSESS PATIENT AND DISCUSS PLAN OF CARE. ALL ORDERS NOTED IN CHART.
[2020-02-20] MEDS: ENOXAPARIN SOD 100 MG/1 ML SYRINGE SC SCH ×2 (10:19→22:00)
[2020-02-20] MEDS: PANTOPRAZOLE 40 MG/10 ML VIAL INJ IV SCH ×2 (10:19→22:00)
[2020-02-20] MEDS: NYSTATIN TOPICAL POWDER 15GM TOP SCH ×2 (10:19→22:00)
[2020-02-20] MEDS: LINEZOLID 600MG/300ML 300 ML IV SCH ×2 (10:19→22:00)
[2020-02-20] MEDS: FLUCONAZOLE 200MG/100ML 100 ML IV SCH (12:32)
[2020-02-20] MEDS: MIDAZOLAM DRIP 50 mg/50mL 50 ML IV SCH (13:38)
--- NOTE | 2020-02-20 14:10 | NUR ---
Respiratory note: ALL VENT ALARMS ARE AUDIBLE, AND FUNCTIONING. BS ARE COARSE/DIMINISHED BILATERALLY. SX FOR SCANT, THIN, PINK SECRETIONS. GAG REFLEX NOTED. PT OPENING EYES, BUT NOT TRACKING. PT CONTINUES TO BE UNABLE TO FOLLOW COMMANDS. CPAP TRIAL PUT ON HOLD UNTIL PT IS MORE AWAKE. ILDEFONSO LEE, AND DR CRUMP AWARE OF PT STATUS. NO NEW VENT CHANGES ORDERED AT THIS TIME. WILL ENDORSE PT STATUS TO MANAGER BUSINESS PROCESS.
--- NOTE | 2020-02-20 15:18 | NUR ---
Nutrition Followup Notes Wt: 105.0 kg 02/19 Pt`s off sedation, intubated, not responsive to surroundings. Pt no longer receiving TPN, pt transitioned to TF with Glucerna 1.2 @ 30 ml/hr. Pt with no distress. Will continue to monitor PO status, skin status, pertinent labs and weight trends. Will f/u in 2-3 days. Est Energy needs: 2440-9062 kcals (17-20 kcal/kgBW), Est Protein needs: 82-90 gms/day (1.0-1.1 gm/kgBW). Will continue to monitor and reassess prn.. LABS: BUN 36H, Ca 8.2L, Alb 1.9L GI: Pt had 10 ml gastric drainage 02/19 per RN doc BS: 16 mod risk, per RN doc. Please refer to wound assessment report for full details. PES: 1) Increased nutrient needs aeb pt sedated, NPO pt with no PO intake 2) Altered nutrition related lab values elev LFTs, elev RFTs, low GFR, hyperglycemia, mod hypoalbuminemia r/t current medical condition Comments Will continue to closely monitor pertinent labs, PO intake, and skin status prn. Will followup in 2-3 days 1) Continue to closely monitor pt NPO status. 2) Gradually advance pt to oral diet when medically feasible and as tolerated. 3) Consider a daily MVI with 500mg VitC BID. 4) Continue PN support to meet > 75% of needs. 5) Continue current plan of care
[2020-02-20] MEDS: fentaNYL Drip 2500mCg/250mlNS 250 ML IV SCH (15:44)
--- NOTE | 2020-02-20 16:02 | NUR ---
Respiratory note: PT PLACED ON CPAP TRIAL PT DUE TO RR INCREASE, AND PT BEING MORE AWAKE. WILL ATTEMPT CPAP TRIAL. RN AT BEDSIDE. WILL ENDORSE PT STATUS TO NUCLEAR WEAPONS MECHANICAL SPECIALIST.
--- NOTE | 2020-02-20 18:24 | NUR ---
Respiratory note: PT ON CPAP MODE, NOT FOLLOWING COMMANDS AT THIS TIME, UNABLE TO OBTAIN CPAP PARAMETERS. PT TO BE PLACED BACK ON PREVIOUS AC SETTINGS, WILL NOTIFY RN.
--- NOTE | 2020-02-20 19:54 | NUR ---
ADMITTED WITH ALOC. CT OF BRAIN DONE. INTUBATED IN ER ON 02/09/2020. ON ASSIST CONTROL MODE. ORDERS FOR CPAP WHEN PATIENT WAKES UP. LEFT NARE NGT CLAMPED. ATKINS IN PLACE TO DOWN DRAIN BAG. HAS SKIN ISSUES: ERYTHEMA ON SACRUM.
--- NOTE | 2020-02-20 19:54 | NUR ---
SKIN: LEFT FOREARM SKIN TEAR.CURRENTLY IS SCABBED AND OPEN TO AIR. ISABEL AREA REDNESS . USING MYCOSTATIN BETWEEN FOLDS. FLEXASEAL IN PLACE. COCCYX THERE ARE 2 OPEN AREAS THAT BLEED. THERE IS A COUPLE AREAS THAT ARE RED. Z GUARD AND OPTIFOAM TO THIS AREA. EDEMA PERSISTS IN HANDS AND FEET. EXTREMITIES ARE WARM. PULSES ARE WEAK. ARMS AND LEGS ARE VERY STIFF. BILATERAL MITTENS ON WHILE OFF SEDATION. BENDS ARMS. OPENS EYES. 100% V PACED.
--- NOTE | 2020-02-20 22:00 | NUR ---
REPOSITIONED AND PATIENT RETURNED TO LYING ON HER LEFT SIDE. SWALLOWED WATER AND A PILL. IMMEDIATELY WHEN SHE WOKE UP TRIED TO KNOCK THE BIPAP MASK OFF. WE CALMED HER DOWN AND NOW SHE IS RESTING. NSR, NO ECTOPY. O2 SAT 92%. ON CPAP MODE , PRESSURE 8, FIO2 85%. ACCUCHECK DONE. IV SHOWS NO REDNESS OR SWELLING. Addendum: 02/20/20 at 6090 by OVIDIO GARCIA RN WRONG CHART
--- NOTE | 2020-02-20 22:05 | NUR ---
REPOSITIONED TO BACK . ORAL CARE. SUCTIONED ETT FOR A SMALL AMOUNT OF CREAMY SECRETIONS. ABDOMEN SOFT. NGT RESIDUAL 2 CC. NO DRNG THROUGH THE FLEXASEAL. ATKINS: DIURESING FROM PREVIOUS LASIX. 100% V PACED.
--- NOTE | 2020-02-20 23:07 | NUR ---
PREVIOUS NOTE ON WRONG CHART.
[2020-02-21] VITALS (80 sets, daily range): BP systolic 90–146; BP diastolic 36–79
--- NOTE | 2020-02-21 | NUR ---
REPOSITIONED. VSS. SMALL AMOUNT SUCTIONED FROM THE ETT. ORAL CARE DONE.
--- NOTE | 2020-02-21 | NUR ---
VSS. LUNGS CLEAR AND DIMINISHED. CPAP, PRESSURE 8, FIO2 85%. RR 30-32. NSR WITHOUT ECTOPY. IV SITE SHOWS NO REDNESS OR SWELLING. Addendum: 02/21/20 at 0152 by OVIDIO GARCIA RN WRONG CHART
[2020-02-21] MEDS: ALBUTEROL SULF 2.5 MG/0.5ML(0.5%) NEB SOLN NEB SCH ×5 (00:11→23:58)
--- NOTE | 2020-02-21 01:00 | NUR ---
PATIENT HAD HER MITTENS ON, BUT SHE KNOCKED THE MASK OFF AND SAT UP. GOWNED UP, WENT IN ROOM. PATIENT IS [place] SPEAKING ONLY. CALLED AN HEAT TREATMENT TECHNICIAN FROM THE FLOOR TO SPEAK [place]. Addendum: 02/21/20 at 0151 by OVIDIO GARCIA RN WRONG CHART
--- NOTE | 2020-02-21 03:40 | NUR ---
ATIVAN GIVEN . HR CAME DOWN TO 102 FROM 120. O2 SAT IMPROVED TO 91%. RR IS CONSISTENT AT 44. CALL IN TO THE RT. NOTED CPAP PRESSURE IS 9 AND IS ON FIO2 95%. ATIVAN HELPED SOME. SHITAL MUNOZ NOTIFIED. NO ORDERS RECEIVED . HIS INSTRUCTION WAS TO JUST LEAVE HER ALONE. LIBRARY CUSTOMER SERVICE CLERK NOTIFIED. Addendum: 02/21/20 at 0434 by OVIDIO GARCIA RN WRONG CHART. COMPUTER KEEPS FLIPPING BACK TO THIS PATIENT.
[2020-02-21] MEDS: DexMEDEtomidine 400 MCG in D5W 5% 96 ML IV SCH (05:26)
[2020-02-21] MEDS: FUROSEMIDE 40 MG/4 ML VIAL IV SCH ×2 (06:00→18:06)
[2020-02-21] MEDS: SODIUM CHLORIDE 0.9% 1,000 ML IV SCH ×2 (06:40→20:00)
--- NOTE | 2020-02-21 07:00 | NUR ---
REPORT RECEIVED FROM TERMITE HELPER NURSE. PATIENT RESTING IN BED AT THIS TIME, INTUBATED. RESPIRATIONS EVEN AND UNLABORED. NO SIGNS OF ACUTE DISTRESS NOTED AT THIS TIME. BED IN LOW POSITION. WILL CONTINUE TO MONITOR.
[2020-02-21] MEDS: MEROPENEM 1GM IVPB 100 ML IV SCH ×3 (08:00→18:05)
--- NOTE | 2020-02-21 09:20 | NUR ---
DR Robert KIRBY AT BEDSIDE TO ASSESS PATIENT AND DISCUSS PLAN OF CARE.
[2020-02-21 09:37] LABS: Eosinophils # (auto) 0.1 10 ^3/uL (0-0.8); Monocytes # (auto) 0.3 10 ^3/uL (0-1.3); Neutrophils # (auto) 5.6 10 ^3/uL (1.6-8.6); Platelet Count (auto) 130 10^3/uL (140-450)
[2020-02-21 09:38] LABS: Basophils # (auto) 0.1 10 ^3/uL (0-0.2); Basophils % (auto) 0.8 % (0.0-2.0); Eosinophils % (auto) 1.2 % (0.0-7.0); Hematocrit 20.1 % (36.0-46.0); Lymphocytes % (auto) 14.4 % (10.0-50.0); Mean Corpuscular Hemoglobin 31.9 pg (28.0-32.0); Mean Corpuscular Hgb Conc. 34.2 g/dL (32.0-36.0); Mean Corpuscular Volume 93.4 fL (80.0-100.0); Monocytes % (auto) 3.6 % (0.0-12.0); Nucleated Red Blood Cells % 0.1 %; Red Blood Cells 2.15 10^6/uL (4.0-5.20); Red Cell Distribution Width 14.2 % (11.8-14.3)
[2020-02-21 09:47] LABS: Hemoglobin 6.9 g/dL (12.2-16.2)
--- NOTE | 2020-02-21 09:54 | NUR ---
PAGED DR PRESLEY FOR PATIENTS HGB 6.9. AWAITING CALL BACK.
[2020-02-21 10:00] LABS: Calcium 7.9 mg/dL (8.5-10.1); Magnesium 1.9 mg/dL (1.6-2.6); Potassium 3.1 mmol/L (3.5-5.1)
[2020-02-21] MEDS: NYSTATIN TOPICAL POWDER 15GM TOP SCH ×2 (10:00→22:00)
[2020-02-21] MEDS: ENOXAPARIN SOD 100 MG/1 ML SYRINGE SC SCH ×2 (10:00→22:00)
[2020-02-21 10:02] LABS: BUN/Creatinine Ratio 36.7
[2020-02-21] MEDS: PANTOPRAZOLE 40 MG/10 ML VIAL INJ IV SCH ×2 (10:10→22:00)
--- NOTE | 2020-02-21 10:45 | NUR ---
PATIENT PLACED ON CPAP TRIAL. PATIENT TOLERATING WELL. WILL CONTINUE TO MONITOR.
--- NOTE | 2020-02-21 10:45 | NUR ---
PT. PLACED ON CPAP 5,PS 8, PT. OPENS HER EYES, BUT IS NOT FOLLOWING COMMANDS. PT. OBSERVED FOR 15MIN, UNABLE TO OBTAIN ANY WEANING PARAMETER, DUE TO PT. NOT FOLLOWING COMMANDS. NO RESP. DISTRESS OBSERVED. PT. DOES HAVE FEVER OF 100.5, AND HBG 6.9 ON LABS TODAY. PLACED PT. BACK ON AC MODE, UNTIL PT. BECOMES MORE ALERT AND ALBLE TO FOLLOW COMMANDS. Addendum: 02/21/20 at 1138 by Gloria Dumas RT Amended: Links added.
--- NOTE | 2020-02-21 11:40 | NUR ---
UPDATED PATIENTS FAMILY ON STATUS. ALL QUESTIONS AND CONCERNS ADDRESSED AT THIS TIME.
--- NOTE | 2020-02-21 11:40 | NUR ---
PAGED DR PRESLEY FOR HGB 6.9 AND POTASSIUM 3.1 AWAITING CALL BACK.
[2020-02-21] MEDS: FLUCONAZOLE 200MG/100ML 100 ML IV SCH (12:58)
[2020-02-21] MEDS: ACETAMINOPHEN 650 mg PER 20 mL UD GT PRN ×2 (13:00→20:59)
--- NOTE | 2020-02-21 13:34 | NUR ---
DR Shakir MALHOTRA AT BEDSIDE TO ASSESS PATIENT AND DISCUSS PLAN OF CARE. MD MADE AWARE OF PATIENTS HBG 6.9. PER MD ADMINISTER 1 UNIT PRBC. PER MD PATIENT NOT STABLE FOR COLONOSCOPY AT THIS TIME. ALL ORDERS NOTED IN CHART.
[2020-02-21] MEDS: MIDAZOLAM DRIP 50 mg/50mL 50 ML IV SCH (13:38)
--- NOTE | 2020-02-21 14:12 | NUR ---
DR ESPINOSA AT BEDSIDE TO ASSESS PATIENT AND DISCUSS PLAN OF CARE. MD MADE AWARE OF DR Shakir MALHOTRA ORDER FOR 1 UNIT PRBC FOR HGB 6.9. MD MADE AWARE OF POTASSIUM LEVEL OF 3.1. PER MD ADMINISTER 40MEQ POTASSIUM IVPB, THEN 40MEQ IVPB QD PRN FOR POTASSIUM 3.5 OR LESS. PER MD HOLD LOVENOX TODAY AND OK TO GIVE ZYVOX. ALSO PER MD ADMINISTER 40MG LASIX IVP AFTER BLOOD COMPLETED. ALL ORDERS NOTED IN CHART.
[2020-02-21] MEDS ORDERED: FUROSEMIDE 40 MG/4 ML VIAL IV ONE (14:30)
[2020-02-21] MEDS: LINEZOLID 600MG/300ML 300 ML IV SCH ×2 (15:43→22:00)
[2020-02-21] MEDS: fentaNYL Drip 2500mCg/250mlNS 250 ML IV SCH ×2 (15:44→20:30)
[2020-02-21] MEDS: POTASSIUM CHL 20MEQ/100ML 100 ML IV SCH ×2 (15:44→18:06)
--- NOTE | 2020-02-21 15:50 | NUR ---
DR LOTT AT BEDSIDE TO ASSESS PATIENT AND DISCUSS PLAN OF CARE.
--- NOTE | 2020-02-21 16:16 | NUR ---
STARTED UNIT PRBC, PATIENT TOLERATING WELL. WILL CONTINUE TO MONITOR.
[2020-02-21] MEDS ORDERED: POTASSIUM CHL 20MEQ/100ML 100 ML IV SCH (19:45)
--- NOTE | 2020-02-21 19:51 | NUR ---
ADMITTED WITH ALOC. CT OF BRAIN DONE. INTUBATED IN ER ON 02/09/2020. ON ASSIST CONTROL MODE. ORDERS FOR CPAP WHEN PATIENT WAKES UP. LEFT NARE NGT CLAMPED. ATKINS IN PLACE TO DOWN DRAIN BAG. HAS SKIN ISSUES: ERYTHEMA ON SACRUM. 2 OPEN WOUNDS ON SACRUM THAT BLEED EASILY. SOME SEROUS DRNG ON THE OPTIFOAM. BILATERAL MITTENS ON. WAKES UP, DOES NOT STAY AWAKE. FAILED CPAP TRIAL TODAY WHEN SHE DID NOT PARTICIPATE IN WEANING PARAMETERS. SHE IS JUST SIMPLY NOT AWAKE ENOUGH. UPC IS FINISHING. KCL REPLACEMENT IS FINISHING. FLEXASEAL IN PLACE WITH MINIMAL DRNG. LEFT CORNER OF MOUTH IS RED.LEFT NARE NGT CLAMPED.
--- NOTE | 2020-02-21 20:00 | NUR ---
PATIENT IS AWAKE, COUGHING, MOVING HER ARMS/MITTENS UP BY THE ETT. ATIVAN GIVEN WITH NO RESULTS. LOW DOSE FENTANYL STARTED. RR 30-32. FACE IS RED. O2 SAT IS 100%. OVER CYCLING THE VENTILATOR. PIP 28.4. VERY LITTLE CLOUDY SECRETIONS SUCTIONED FROM THE ETT. SMALL AMOUNT SUCTIONED FROM THE ORAL CAVITY. ATKINS DRAINED 1000CC SINCE 1800. UPC FINISHED. LINE FLUSHED. CLOSED THE ONLINE BLOOD ENTRY. PAPER FILLED OUT. NO REACTION TO THE BLOOD. NO RASH, NO BLOOD IN URINE, NO DYSPNEA.
--- NOTE | 2020-02-21 20:15 | NUR ---
POST UPC INFUSION LASIX GIVEN.
[2020-02-21] MEDS ORDERED: POTASSIUM CHL 20MEQ/100ML 100 ML IV PRN ×2 (21:15→21:45)
--- NOTE | 2020-02-21 22:00 | NUR ---
FENTANYL IS ON AT 100 MCG. KEEPING HER REASONABLY QUIET. HER RR IS NOW 20. PATIENT IS RESTING. 100% V PACED. SBP STABLE.
[2020-02-21 23:08] LABS: Hemoglobin 8.1 g/dL (12.2-16.2)
--- NOTE | 2020-02-21 23:32 | NUR ---
HG 8.1. POTASSIUM PENDING
[2020-02-22] VITALS (91 sets, daily range): BP systolic 105–155; BP diastolic 29–90
--- NOTE | 2020-02-22 | NUR ---
POTASSIUM 3.0. KCL REPLACEMENT STARTED. TOTAL OF 40MEQ IV TO BE GIVEN. PATIENT IS REASONABLY QUIET. RR 13
--- NOTE | 2020-02-22 02:00 | NUR ---
POTASSIUM REPLACEMENT GOING. ORAL CARE. ETT SUCTIONED FOR NO SECRETIONS.
[2020-02-22] MEDS: POTASSIUM CHL 20MEQ/100ML 200 ML IV PRN ×2 (02:55→13:15)
[2020-02-22] MEDS: SODIUM CHLORIDE 0.9% 1,000 ML IV SCH ×2 (04:00→09:20)
--- NOTE | 2020-02-22 04:00 | NUR ---
CHG BATH AND PARTIAL LINEN CHANGE. NYSTATIN TO RED ISABEL SKIN FOLDS.
[2020-02-22] MEDS: FUROSEMIDE 40 MG/4 ML VIAL IV SCH ×2 (05:58→18:57)
[2020-02-22] MEDS: ALBUTEROL SULF 2.5 MG/0.5ML(0.5%) NEB SOLN NEB SCH ×3 (07:18→19:16)
[2020-02-22] MEDS: DexMEDEtomidine 400 MCG in D5W 5% 96 ML IV SCH ×2 (08:00→09:15)
[2020-02-22] MEDS: MEROPENEM 1GM IVPB 100 ML IV SCH ×3 (08:30→17:06)
--- NOTE | 2020-02-22 09:00 | NUR ---
WILL WEAN SEDATION FOR CPAP THIS AFTERNOON Addendum: 02/22/20 at 1641 by Hollie Hickey RN Amended: Links added.
--- NOTE | 2020-02-22 10:15 | NUR ---
PATIENT ATTEMPTING TO PULL AT ETT - BILAT SOFT WRIST RESTRAINTS APPLIED PER PROTOCOL.
[2020-02-22 10:16] LABS: Basophils # (auto) 0.1 10 ^3/uL (0-0.2); Basophils % (auto) 0.7 % (0.0-2.0); Eosinophils # (auto) 0.2 10 ^3/uL (0-0.8); Hematocrit 23.8 % (36.0-46.0); Hemoglobin 8.3 g/dL (12.2-16.2); Lymphocytes # (auto) 0.9 10 ^3/uL (0.4-5.4); Lymphocytes % (auto) 11.3 % (10.0-50.0); Mean Corpuscular Hemoglobin 31.6 pg (28.0-32.0); Mean Corpuscular Hgb Conc. 34.8 g/dL (32.0-36.0); Mean Corpuscular Volume 90.8 fL (80.0-100.0); Monocytes # (auto) 0.3 10 ^3/uL (0-1.3); Monocytes % (auto) 3.5 % (0.0-12.0); Neutrophils # (auto) 6.5 10 ^3/uL (1.6-8.6); Neutrophils % (auto) 82.5 % (37.0-80.0); Nucleated Red Blood Cells % 0.1 %; Platelet Count (auto) 105 10^3/uL (140-450); Red Blood Cells 2.63 10^6/uL (4.0-5.20); Red Cell Distribution Width 14.6 % (11.8-14.3); White Blood Cell 7.9 10^3/uL (4.4-10.8)
--- NOTE | 2020-02-22 10:27 | NUR ---
PATIENT'S SON SONNY CALLS -UPDATED ON PATIENT CONDITION - VERBALIZED UNDERSTANDING.
[2020-02-22] MEDS: PANTOPRAZOLE 40 MG/10 ML VIAL INJ IV SCH ×2 (10:32→22:00)
[2020-02-22] MEDS: ENOXAPARIN SOD 100 MG/1 ML SYRINGE SC SCH ×2 (10:32→22:00)
[2020-02-22] MEDS: LINEZOLID 600MG/300ML 300 ML IV SCH ×2 (10:33→22:00)
[2020-02-22] MEDS: NYSTATIN TOPICAL POWDER 15GM TOP SCH ×2 (10:34→22:00)
[2020-02-22 10:47] LABS: Calcium 8.3 mg/dL (8.5-10.1); Potassium 3.3 mmol/L (3.5-5.1)
[2020-02-22 10:51] LABS: BUN/Creatinine Ratio 28.2
--- NOTE | 2020-02-22 13:00 | NUR ---
WOUND CARE NOTE: IN TO SEE PATIENT AT THIS TIME FOR SKIN INTEGRITY. PATIENT IS LIGHTLY SEDATED, INTUBATED. CURRENT DANIEL SCORE IS 14. PATIENT CONTINUES TO REST ON P 500 LOW AIRLOSS AIR BED. PATIENT TURNED TO THE LEFT SIDE. RIGHT SACRAL WOUND HAS EVOLVED OPEN TO PARTIAL THICKNESS STAGE 2 PRESSURE INJURY. PERIWOUND SKIN IS PINK, WITH RED WOUND BED. OPEN AREAS MEASURE 5 X 5 CM IN TOTAL. SCANT SEROUS DRAINAGE NOTED. APPLIED ZGUARD, OPTIFOAM GENTLE SACRAL DRESSING TO COVER AND PROTECT. SKIN TEARS TO THE LEFT LOWER ARM/WRIST ARE SCABBED CLOSED, LEFT OPEN TO AIR. SHE HAS AN INTACT RASH OR EARLY ECCHYMOSIS NOTED TO RIGHT FLANK. LEFT OPEN TO AIR. INTACT ECCHYMOSIS NOTED TO LEFT UPPER ANTERIOR THIGH. LEFT OPEN TO AIR. WOUND PHOTOS TAKEN AT THIS TIME PER MD ORDER. PATIENT REPOSITIONED ONTO LEFT SIDE, REDISTRIBUTING PRESSURE POINTS USING PILLOWS. RECOMMEND: CONTINUATION WITH ALL WOUND CARE ORDERS PREVIOUSLY PRESCRIBED BY MD. WOUND CARE TEAM WILL CONTINUE TO MONITOR. Addendum: 02/22/20 at 1637 by Augustina Murphy RN Amended: Links added.
[2020-02-22] MEDS: MIDAZOLAM DRIP 50 mg/50mL 50 ML IV SCH (13:38)
[2020-02-22] MEDS: fentaNYL Drip 2500mCg/250mlNS 250 ML IV SCH ×2 (13:46→22:00)
[2020-02-22] MEDS: FLUCONAZOLE 200MG/100ML 100 ML IV SCH (13:49)
--- NOTE | 2020-02-22 14:30 | NUR ---
Respiratory note: PT PLACED ON CPAP TRIAL. PS 8, CPAP 5, FI02 30%. PT TOLERATING WELL. WILL CONT. TO MONITOR.
--- NOTE | 2020-02-22 14:40 | NUR ---
Patient started on weaning trials, RT bedside. Will continue to monitor as endorsed by primary RN.
--- NOTE | 2020-02-22 15:00 | NUR ---
DR QUAN VISITS AND EXAMINES PATIENT - ORDERS RECEIVED. CPAP TRIAL CONTINUES WITH PATIENT ON FENTANYL 50 MCG. PATIENT VERY RESTLESS. BILAT SOFT WRIST RESTRAINTS CONT'D.
--- NOTE | 2020-02-22 17:00 | NUR ---
PATIENT'S SON SONNY ROSS - UPDATE GIVEN.
--- NOTE | 2020-02-22 17:28 | NUR ---
COVID TEST RECEIVED CALL FROM [facility] COVID TEST IS POSITIVE. Addendum: 02/22/20 at 2131 by Hollie Hickey RN ERROR - WRONG CHART
--- NOTE | 2020-02-22 17:30 | NUR ---
CALL PLACED TO DR BACON FOR ABG RESULTS. Addendum: 02/22/20 at 2001 by Hollie Hickey RN PATIENT VERY RESTLESS
--- NOTE | 2020-02-22 18:23 | NUR ---
PLACED ANOTHER CALL TO DR BACON RE: ABG RESULTS - PATIENT REMAINS VERY RESTLESS AND NOW AGITATED. TEMP REMAINS ELEVATED AT 100.9.
--- NOTE | 2020-02-22 18:45 | NUR ---
PATIENT AGITATION CONTINUES TO WORSEN - FENTANYL RE-STARTED AND RT NOTIFIED TO PLACE PATIENT BACK ON AC MODE. TEMP 101.1
--- NOTE | 2020-02-22 19:00 | NUR ---
DR BACON IN ICU - NOTIFIED OF ABG RESULTS - ORDERS RECEIVED. RT NOTIFIED. Addendum: 02/22/20 at 2134 by Hollie Hickey RN ALSO NOTIFIED IF PATIENT'S TEMP 101.1-ORDERS RECEIVED.
--- NOTE | 2020-02-22 19:47 | NUR ---
ADMITTED WITH ALOC. CT OF BRAIN DONE. INTUBATED IN ER ON 02/09/2020. ON ASSIST CONTROL MODE. ORDERS FOR CPAP WHEN PATIENT WAKES UP. LEFT NARE NGT CLAMPED. ATKINS IN PLACE TO DOWN DRAIN BAG. ARMENDARIZ CULTURE ORDERED FOR A TEMPERATURE OF 101.1. NEW ORDER FOR RESTRAINTS. PATIENT WAS TRYING TO PULL HER ETT ON DAYSHI. CPAP TODAY WAS FROM 2:30PM UNTIL 6:30 PM. DID WELL. FENTANYL DRIP FOR HER AGITATION AND ACTIVITY. RECEIVED EXTRA POTASSIUM TODAY. NO LABS UNTIL AM TOMORROW. STARTED ON SEROQUEL FOR ALOC. ON AN AIR LOSS SPECIAL BED. SKIN: SCAB LEFT FOREARM. SACRAL REDNESS : OPEN AREA COVERED BY OPTIFOAM. ON LASIX. ISABEL FOLDS: MYCOSTATIN. RECTAL TEMP PROBE IN. FLEXASEAL WITH MINIMAL DRNG. RHYTHM: 100% V PACED. IRREGULAR
--- NOTE | 2020-02-22 20:00 | NUR ---
URINE CULTURE SENT. 3 ICE BAGS APPLIED TO PATIENT FOR TEMP OF 100.8. RT MADE AWARE OF NEED FOR SPUTUM SPECIMEN. RT HELPED ME REPOSITION THE RESTLESS PATIENT. BILATERAL MITTENS AND RESTRAINTS ON. HOB ELEVATED. ORAL CARE DONE. ETT SUCTIONED. ABDOMEN SOFT. ISABEL AREA REDNESS WITH MYCOSTATIN TREATMENT. FLEXASEAL DRAINING A FOREST GREEN COLOR THICK LIQUID. SMALL AMOUNT OF FLEXASEAL DRNG. ATKINS DRAINING CLEAR YELLOW LIQUID WITH SEDIMENT. 400 CC FOR 2 HOURS. PATIENT OPENS EYES, MOVES ARMS MOSTLY AND LEGS A LITTLE. ALL PULSES PALPABLE WHICH IS AN IMPROVEMENT FROM 5 DAYS AGO. HEELS OFF BED. EDEMA IN HANDS AND FEET. THE EDEMA HAS IMPROVED. NO BOWEL SOUNDS. 2CC OF NGT RESIDUAL. NGT REMAINS CLAMPED.
--- NOTE | 2020-02-22 21:43 | NUR ---
LAB HERE DRAWING THE BLOOD CULTURES.
[2020-02-22] MEDS: QUEtiapine FUMARATE 25 MG TAB PO SCH (22:00)
--- NOTE | 2020-02-22 22:00 | NUR ---
vss REPOSTIONED. ORAL CARE. DIURESING FROM THE 1800 LASIX. IV SITE SHOWS NO REDNESS OR SWELLING. PATIENT IS REASONABLY SEDATED. WAKES UP. OPENS EYES. DOES NOT FOLLOW COMMANDS. LOOKS TO SEE WHAT YOU'RE DOING . NOT HAPPY WITH THE ETT OR ORAL CARE.
[2020-02-23] VITALS (76 sets, daily range): BP systolic 87–145; BP diastolic 36–100
--- NOTE | 2020-02-23 | NUR ---
ORAL CARE. REPOSITIONED. LUNGS CLEAR. MINIMAL OUTPUT THROUGH FLEXASEAL. GOOD URINE OUTPUT. 100% V PACED. QUIET
--- NOTE | 2020-02-23 02:00 | NUR ---
VSS. REPOSITIONED. ORAL CARE. RIJ TLC SHOWS NO REDNESS, SWELLING OR DRNG AT SITE.
--- NOTE | 2020-02-23 03:00 | NUR ---
[facility] PREPARED AND SENT
[2020-02-23 04:57] LABS: Basophils # (auto) 0 10 ^3/uL (0-0.2); Eosinophils # (auto) 0.1 10 ^3/uL (0-0.8); Hemoglobin 7.5 g/dL (12.2-16.2); Lymphocytes # (auto) 1.4 10 ^3/uL (0.4-5.4); Monocytes # (auto) 0.2 10 ^3/uL (0-1.3); Neutrophils # (auto) 3.1 10 ^3/uL (1.6-8.6); Nucleated Red Blood Cells % 0.1 %; Red Cell Distribution Width 14.6 % (11.8-14.3); White Blood Cell 4.9 10^3/uL (4.4-10.8)
[2020-02-23 04:59] LABS: Basophils % (auto) 0.6 % (0.0-2.0); Eosinophils % (auto) 2.6 % (0.0-7.0); Hematocrit 22.3 % (36.0-46.0); Lymphocytes % (auto) 28.8 % (10.0-50.0); Mean Corpuscular Hgb Conc. 33.7 g/dL (32.0-36.0); Mean Corpuscular Volume 92.1 fL (80.0-100.0); Monocytes % (auto) 4.6 % (0.0-12.0); Neutrophils % (auto) 63.4 % (37.0-80.0); Platelet Count (auto) 74 10^3/uL (140-450); Red Blood Cells 2.42 10^6/uL (4.0-5.20)
[2020-02-23 05:12] LABS: Magnesium 1.5 mg/dL (1.6-2.6); Potassium 3.4 mmol/L (3.5-5.1)
[2020-02-23 05:15] LABS: BUN/Creatinine Ratio 27.5
[2020-02-23] MEDS: POTASSIUM CHL 20MEQ/100ML 200 ML IV PRN (05:38)
--- NOTE | 2020-02-23 06:00 | NUR ---
SACRAL WOUND DRAINS SEROUS DRNG. DECREASING THE FENTANYL. PATIENT WAKES UP, BUT DOES NOT STAY AWAKE. 100% VPACED.
[2020-02-23] MEDS: FUROSEMIDE 40 MG/4 ML VIAL IV SCH ×2 (06:09→17:04)
[2020-02-23] MEDS: ALBUTEROL SULF 2.5 MG/0.5ML(0.5%) NEB SOLN NEB SCH ×4 (06:24→18:22)
--- NOTE | 2020-02-23 06:30 | NUR ---
Respiratory note: RECEIVED PT FROM AGRONOMY MANAGER ON VENT V-14 PLUGGED INTO RED OUTLET. ALL VENT ALARMS ARE AUDIBLE, AND FUNCTIONING. AMBU BAG/MASK AT BEDSIDE CONNECTED TO AN 02 SOURCE. ETT IS 8.0 @ THE 23 LIP LINE SECURED WITH A CARLI. MOVED ETT FROM RIGHT, TO LEFT. NO ORAL/SKIN BREAK DOWN NOTED. BS ARE CLEAR BILATERALLY, SX FOR NO RETURN. MEDNEB TX GIVEN INLINE, WITH NO ADVERSE EFFECTS NOTED. PT HAS EYES OPEN, AND IS MOVING HER HANDS, BUT IS NOT TRACKING. PT SKIN IS WARM/DRY TO THE TOUCH. SOME EDEMA NOTED IN HANDS. NO NEW VENT CHANGES ORDERED AT THIS TIME. WILL CONTINUE TO MONITOR PT.
[2020-02-23] MEDS: ENOXAPARIN SOD 100 MG/1 ML SYRINGE SC SCH (09:16)
[2020-02-23] MEDS: MEROPENEM 1GM IVPB 100 ML IV SCH ×3 (10:34→16:36)
[2020-02-23] MEDS: PANTOPRAZOLE 40 MG/10 ML VIAL INJ IV SCH ×2 (10:34→22:07)
[2020-02-23] MEDS: NYSTATIN TOPICAL POWDER 15GM TOP SCH ×2 (10:34→22:08)
--- NOTE | 2020-02-23 11:19 | NUR ---
Respiratory note: PT PLACED ON CPAP TRIAL. SPO2 97% ON 30% FIO2, HR 97, RR 18, BS CLEAR BILATERALLY. PT TOLERATING VENT CHANGE WELL. RN MADE AWARE. WILL CONTINUE TO MONITOR PT.
--- NOTE | 2020-02-23 11:23 | NUR ---
Nutrition Followup Notes Wt: 100.0 kg Pt`s off sedation, intubated, per MD pt to have CPAP trial 02/22. Pt no longer receiving TPN, pt transitioned to TF with Glucerna 1.2 @ 30 ml/hr. Continue TF as medically feasible, advance to oral diet when medically feasible Est Energy needs: 6292-1101 kcals (17-20 kcal/kgBW), Est Protein needs: 82-90 gms/day (1.0-1.1 gm/kgBW). Will continue to monitor and reassess prn.. LABS: BUN 22H, Ca 8.0L, Alb 1.9L GI: Pt had 250 ml of stool 02/21 per RN doc BS: 12 high risk, multiple wounds, Please refer to wound assessment report for full details. PES: 1) Increased nutrient needs aeb pt sedated, NPO pt with no PO intake 2) Altered nutrition related lab values elev LFTs, elev RFTs, low GFR, hyperglycemia, mod hypoalbuminemia r/t current medical condition Comments Will continue to closely monitor pertinent labs, PO intake, and skin status prn. Will followup in 2-3 days 1) Continue to closely monitor pt NPO status. 2) Gradually advance pt to oral diet when medically feasible and as tolerated. 3) Consider a daily MVI with 500mg VitC BID. 4) Continue PN support to meet > 75% of needs. 5) Continue current plan of care
--- NOTE | 2020-02-23 11:35 | NUR ---
FAMILY CALLED PROVIDED PW AND STATED TO BE THE SON. UPDATED ON POC. NO FURTHER QUESTIONS.
--- NOTE | 2020-02-23 12:20 | NUR ---
Respiratory note: DR KATHLEEN LM WITH CPAP PARAMETERS, AND CPAP ABG RESULTS. RN AWARE.
[2020-02-23] MEDS: SODIUM CHLORIDE 0.9% 1,000 ML IV SCH (12:33)
[2020-02-23] MEDS: LINEZOLID 600MG/300ML 300 ML IV SCH ×2 (12:33→22:07)
[2020-02-23] MEDS: MIDAZOLAM DRIP 50 mg/50mL 50 ML IV SCH (12:48)
--- NOTE | 2020-02-23 12:53 | NUR ---
MD CALLED [employer] FINISHER TIFFANIE TO LEAVE PT ON CPAP MODE UNTIL MD ROUNDS.
[2020-02-23] MEDS: FLUCONAZOLE 200MG/100ML 100 ML IV SCH (13:51)
--- NOTE | 2020-02-23 15:29 | NUR ---
MD LOTT ROUNDING WITH PT. INFORMED OF ORDERS WHICH WILL STATED WILL BE PLACING.
[2020-02-23] MEDS: ACETAMINOPHEN 650 mg PER 20 mL UD GT PRN (17:04)
--- NOTE | 2020-02-23 18:22 | NUR ---
Respiratory note: PT EXTUBATED SUCCESSFULLY W/OUT INCIDENT. PLACED PT ON 6 L/M 28% COOL AEROSOL, TOLERATING WELL: HR 100, RR 18, SPO2 100%. RN MONA POWLEL. WILL CONTINUE TO MONITOR.
--- NOTE | 2020-02-23 18:30 | NUR ---
PT EXTUBATED NO DISTRESS NOTED. WILL CONTINUE TO MONITOR. POX 97%.
[2020-02-23] MEDS: DexMEDEtomidine 400 MCG in D5W 5% 96 ML IV SCH (19:20)
[2020-02-23] MEDS ORDERED: LORazepam 2MG/ML-1ML VIAL IV PRN (19:45)
--- NOTE | 2020-02-23 19:46 | NUR ---
CLOSING NOTE/ CARE ENDORSED PT ON MASK 8L. PT APPEARS TO BE RESTING. NO DISTRESS NOTED. VSS, POX 98%.
--- NOTE | 2020-02-23 20:00 | NUR ---
RECIEVED PT S/P EXTUBATION AT 1830, PT IS ON 28% COOL MIST, PINK TINGED SPUTUM CLEASED OUT OF MOUTH AND MASK, SA02 98%, BREATH SOUNDS SLIGHT COURSE, PT AWAKE AND CONFUSED BUT ANSWERS APPROPRIATELY AT TIMES, RESTLESS AND FOUNG IN LARGE AMT LOOSE GREEN STOOL, PT RESISTANT TO CLEANING, CLEANSED AND APPLIED ZGUARD TO RESSENED AREAS ON BUTTOCK, FLEXISEAL REPLACED, TOTAL BED CHANGED AND REPOSITIONED, SEE INTERVENTIONS FOR HEAD TO TOE ASSESSMENT, AND VITAL SIGNS
[2020-02-23] MEDS: QUEtiapine FUMARATE 25 MG TAB PO SCH (22:08)
[2020-02-24] VITALS (21 sets, daily range): BP systolic 121–152; BP diastolic 42–104
[2020-02-24] MEDS: MEROPENEM 1GM IVPB 100 ML IV SCH ×3 (00:38→15:24)
[2020-02-24] MEDS: ALBUTEROL SULF 2.5 MG/0.5ML(0.5%) NEB SOLN NEB SCH ×5 (00:39→23:42)
[2020-02-24] MEDS: SODIUM CHLORIDE 0.9% 1,000 ML IV SCH ×2 (01:20→14:59)
[2020-02-24 04:31] LABS: Basophils # (auto) 0 10 ^3/uL (0-0.2); Eosinophils # (auto) 0.1 10 ^3/uL (0-0.8); Hemoglobin 7.4 g/dL (12.2-16.2); Lymphocytes # (auto) 1.1 10 ^3/uL (0.4-5.4); Mean Corpuscular Volume 93.3 fL (80.0-100.0); Monocytes # (auto) 0.2 10 ^3/uL (0-1.3)
[2020-02-24 04:56] LABS: Basophils % (auto) 0.4 % (0.0-2.0); Eosinophils % (auto) 1.5 % (0.0-7.0); Hematocrit 22.4 % (36.0-46.0); Lymphocytes % (auto) 23.8 % (10.0-50.0); Mean Corpuscular Hgb Conc. 33.2 g/dL (32.0-36.0); Monocytes % (auto) 5.2 % (0.0-12.0); Neutrophils # (auto) 3.1 10 ^3/uL (1.6-8.6); Neutrophils % (auto) 69.1 % (37.0-80.0); Nucleated Red Blood Cells % 0.2 %; Platelet Count (auto) 55 10^3/uL (140-450); Red Cell Distribution Width 14.4 % (11.8-14.3); White Blood Cell 4.5 10^3/uL (4.4-10.8)
[2020-02-24 05:00] LABS: Albumin 2.5 g/dL (3.4-5.0); BUN/Creatinine Ratio 25.3; Calcium 8.1 mg/dL (8.5-10.1); Potassium 3.7 mmol/L (3.5-5.1)
[2020-02-24 05:03] LABS: Bilirubin, Total 1.2 mg/dL (0.2-1.0); Total Protein 5.7 g/dL (6.4-8.2)
[2020-02-24] MEDS: FUROSEMIDE 40 MG/4 ML VIAL IV SCH ×2 (05:45→19:03)
--- NOTE | 2020-02-24 07:40 | NUR ---
OPENING NOTE PT APPEARS TO BE RESTING. NO DISTRESS NOTED. BREATHING EVEN AND UNLABORED. COMPLETE PHYSICAL ASSESSMENT UNDER INTERVENTIONS. BED LOCKED FOR SAFETY AND HOB RAISED. WILL CONTINUE TO MONITOR.
[2020-02-24] MEDS: PANTOPRAZOLE 40 MG/10 ML VIAL INJ IV SCH ×2 (09:37→22:10)
[2020-02-24] MEDS: LINEZOLID 600MG/300ML 300 ML IV SCH ×2 (09:37→22:10)
[2020-02-24] MEDS: NYSTATIN TOPICAL POWDER 15GM TOP SCH ×2 (09:38→22:54)
--- NOTE | 2020-02-24 11:55 | NUR ---
SWALLOW EVALUATION. PATIENT ALOC, ABLE TO FOLLOW ONE STEP COMMANDS. PATIENT HAS NATURAL TEETH BUT VERY POOR HYGIENE. ABLE TO TOLERATE PUREE DIET TEXTURE WITH THIN LIQUIDS WITH NO OVERT SIGNS OR SYMPTOMS OF ASPIRATION. NURSING NOTIFIED.
[2020-02-24] MEDS: MIDAZOLAM DRIP 50 mg/50mL 50 ML IV SCH (12:28)
--- NOTE | 2020-02-24 12:40 | NUR ---
PT WATCHING TV WILL CONTINUE TO MONITOR.
[2020-02-24] MEDS: FLUCONAZOLE 200MG/100ML 100 ML IV SCH (12:44)
[2020-02-24] MEDS: fentaNYL Drip 2500mCg/250mlNS 250 ML IV SCH (14:59)
[2020-02-24] MEDS: DexMEDEtomidine 400 MCG in D5W 5% 96 ML IV SCH (14:59)
--- NOTE | 2020-02-24 16:36 | NUR ---
REPORT GIVEN PT RN GIVEN REPORT OVER PHONE. ROOM ASSIGNMENT [id number].
--- NOTE | 2020-02-24 17:10 | NUR ---
PT TRANSPORTED BEDSIDE SITTER. NO DISTRESS. PT TALKING AND NO DISTRESS PRESENTED. PT CONNECTED TO TELE, CENTRAL LINE DRESSING CHANGED AT BEDSIDE AND RECEIVING RN AWARE OF PT IN ROOM.
--- NOTE | 2020-02-24 18:46 | NUR ---
Respiratory note: AT BESIDE FOR MED NEB TX. PT TOLERATING TX WELL VIA MASK. PT HAS BILAT MITTENS ON. SITTER AT BEDSIDE. POX 95-97% ON 2LPM NC. HR 90S. BS ARE DIMINISHED T/O.
--- NOTE | 2020-02-24 19:55 | NUR ---
RECTAL TUBE DC'D AT THIS TIME. PATIENT HAD 100ML OF DARK GREEN THICK LIQUIDY STOOL IN RESERVOIR.
--- NOTE | 2020-02-24 20:35 | NUR ---
SONNY (SON) CALLED AND ASKED IF HE COULD SPEAK WITH THE [employer] CONSULTANT REGARDING HIS MOTHER'S SNF PLACEMENT. I TOLD HIM THAT I WILL PASS THE MESSAGE ALONG THE [employer] CONSULTANT IS NOT AVAILABLE AT THIS TIME. PHONE#: [phone]
--- NOTE | 2020-02-24 20:43 | NUR ---
COVID SWAB COMPLETED AT THIS TIME AND TAKEN TO THE LABORATORY.
[2020-02-24] MEDS: QUEtiapine FUMARATE 25 MG TAB PO SCH (22:10)
--- NOTE | 2020-02-24 22:54 | NUR ---
OPTIFOAM PLACED ON PATIENT SACRAL REGION TO PROVIDE ADDITIONAL COMFORT AND PROTECT OPEN AREA.
--- NOTE | 2020-02-24 23:45 | NUR ---
Respiratory note: AT BEDSIDE FOR MED NEB TX. PT TOLERATING TX WELL VIA MASK. BS ARE CLEAR DIMINISHED T/O. POX 99-100% ON 2LPM NC, RR16-18, HR 80S. PT HAS SITTER AT BEDSIDE. WILL CONTINUE TO MONITOR NEEDED.
--- NOTE | 2020-02-24 23:50 | NUR ---
Respiratory note: POST TX FIO2 TITRATED TO 1LPM NC, COMMUNICATED O2 CHANGE WITH ILDEFONSO EL.
[2020-02-25] MEDS: MEROPENEM 1GM IVPB 100 ML IV SCH ×2 (00:24→08:30)
[2020-02-25] MEDS: SODIUM CHLORIDE 0.9% 1,000 ML IV SCH (04:00)
[2020-02-25 04:44] VITALS: BP 155/57
[2020-02-25] MEDS: FUROSEMIDE 40 MG/4 ML VIAL IV SCH (05:51)
[2020-02-25] MEDS: ACETAMINOPHEN 650 mg PER 20 mL UD GT PRN ×2 (05:51→21:38)
[2020-02-25] MEDS: ALBUTEROL SULF 2.5 MG/0.5ML(0.5%) NEB SOLN NEB SCH ×3 (06:36→19:17)
[2020-02-25 09:00] VITALS: BP 146/63
[2020-02-25] MEDS: PANTOPRAZOLE 40 MG/10 ML VIAL INJ IV SCH (09:36)
[2020-02-25] MEDS: LINEZOLID 600MG/300ML 300 ML IV SCH (11:30)
[2020-02-25] MEDS: NYSTATIN TOPICAL POWDER 15GM TOP SCH ×2 (12:07→21:39)
[2020-02-25] MEDS ORDERED: IRON SUCROSE COMPLEX 200 MG in SODIUM CHL 0.9% 100 ML IV SCH (12:15)
[2020-02-25 13:00] VITALS: BP 141/67
--- NOTE | 2020-02-25 14:45 | NUR ---
Nutrition Followup Notes Wt: 101.0 kg Pt extubated 02/23 and Pt diet advanced to pureed. Pt was with a sitter at time of rounds. Pt was falling asleep while answering questions, unable to obtain answer to any question. Per sitter pt po intake has been poor, sitter assists with feedings. Pt with poor po intake aeb avg po intake of 25% x 2 per RN note. Consider adding oral supplements if pt po intake continues to be poor. Est Energy needs: 3406-7834 kcals (17-20 kcal/kgBW), Est Protein needs: 82-90 gms/day (1.0-1.1 gm/kgBW). Will continue to monitor and reassess prn.. LABS: BUn 20H, Ca 8.1L, Alb 2.5L GI: Pt with 2 BMs 02/24 per RN note BS: 11 high risk, multiple wounds, Please refer to wound assessment report for full details. PES: 1) Increased nutrient needs aeb pt sedated, NPO pt with no PO intake 2) Altered nutrition related lab values elev LFTs, elev RFTs, low GFR, hyperglycemia, mod hypoalbuminemia r/t current medical condition Comments Will continue to closely monitor pertinent labs, PO intake, and skin status prn. Will followup in 3-5 days 1) Pt po intake >75%, consider oral supplements if it continues to be poor 2) Consider a daily MVI with 500mg VitC BID. 3) Continue current plan of care
--- NOTE | 2020-02-25 15:20 | NUR ---
D/C Planning Regarding social service consult for SNF placement for breathing therapy. Contact ALICE Yost with [facility]. ALICE Advised me to fax clinical information to [facility]. Faxed clinical information to facility. Per Anum with [facility] patient has been accepted and they will assign room number upon discharge day. ALICE Yost with [facility] was informed of accepting facility.
[2020-02-25 17:00] VITALS: BP 138/55
--- NOTE | 2020-02-25 19:15 | NUR ---
OPENING NOTE- NOC SHIFT PATIENT IS ALERT AND ORIENTED X2. PATIENT IS IN BED, BED IS LOCKED AT LOWEST POSITION, BED RAILS UP X2 AND HEAD OF BED IS UP >30 DEGREES FOR SAFETY PRECAUTIONS. NURSE PROGRAM PLANNER AT BEDSIDE FOR PATIENT SAFETY. WILL CONTINUE TO MONITOR Q1H AND PRN.
[2020-02-25] MEDS: QUEtiapine FUMARATE 25 MG TAB PO SCH (21:36)
[2020-02-25] MEDS: DOXYCYCLINE 100 MG TAB/CAP PO SCH (21:36)
[2020-02-25] MEDS: MUPIROCIN 2% OINT 15gm or 22gm EACHNOSTRI SCH (21:39)
[2020-02-25] MEDS: POTASSIUM EFFERVESENT TAB 25 MEQ PO SCH (21:47)
[2020-02-25 22:00] VITALS: BP 145/63
[2020-02-26] MEDS: ALBUTEROL SULF 2.5 MG/0.5ML(0.5%) NEB SOLN NEB SCH ×4 (01:03→18:49)
[2020-02-26 05:00] VITALS: BP 134/76
[2020-02-26 08:33] LABS: INR 1.4 (0.9-1.15); Partial Thromboplastin Time 24.2 sec (23.64-32.05)
[2020-02-26 09:00] VITALS: BP 136/74
[2020-02-26] MEDS: MUPIROCIN 2% OINT 15gm or 22gm EACHNOSTRI SCH ×2 (09:34→23:00)
[2020-02-26] MEDS: FAMOTIDINE 20 MG TAB PO SCH (09:34)
[2020-02-26] MEDS: DOXYCYCLINE 100 MG TAB/CAP PO SCH ×2 (09:35→23:01)
[2020-02-26] MEDS: POTASSIUM EFFERVESENT TAB 25 MEQ PO SCH (09:35)
[2020-02-26] MEDS: ENOXAPARIN SOD 40 MG/0.4 ML SYRINGE SC SCH (09:35)
[2020-02-26] MEDS: NYSTATIN TOPICAL POWDER 15GM TOP SCH ×2 (09:36→23:01)
[2020-02-26] MEDS: SODIUM FERR GLUC 62.5MG/5ML 125 MG in SODIUM CHL 0.9% 100 ML IV SCH (11:49)
[2020-02-26 13:19] VITALS: BP 134/74
[2020-02-26 16:31] VITALS: BP 129/74
[2020-02-26 16:38] LABS: Basophils # (auto) 0 10 ^3/uL (0-0.2); Eosinophils # (auto) 0.1 10 ^3/uL (0-0.8); Hematocrit 22.6 % (36.0-46.0); Hemoglobin 7.6 g/dL (12.2-16.2); Lymphocytes # (auto) 1.2 10 ^3/uL (0.4-5.4); Monocytes # (auto) 0.2 10 ^3/uL (0-1.3); Monocytes % (auto) 5.5 % (0.0-12.0); Neutrophils # (auto) 2.9 10 ^3/uL (1.6-8.6); Nucleated Red Blood Cells % 0.1 %; Platelet Count (auto) 76 10^3/uL (140-450); Red Blood Cells 2.44 10^6/uL (4.0-5.20); White Blood Cell 4.5 10^3/uL (4.4-10.8)
[2020-02-26 16:40] LABS: Basophils % (auto) 0.8 % (0.0-2.0); Eosinophils % (auto) 2.3 % (0.0-7.0); Lymphocytes % (auto) 27.4 % (10.0-50.0); Mean Corpuscular Hgb Conc. 33.6 g/dL (32.0-36.0); Mean Corpuscular Volume 92.2 fL (80.0-100.0); Red Cell Distribution Width 13.9 % (11.8-14.3)
[2020-02-26 16:55] LABS: BUN/Creatinine Ratio 20.9; Potassium 3.7 mmol/L (3.5-5.1)
--- NOTE | 2020-02-26 18:49 | NUR ---
RT NOTE PT WAS SEEN BY RT FOR HHN TX. PT TOLERATES POORLY VIA MASK, PT ONLY TOOK 1/2 OF THE TX BEFORE GETTING AGITATED. NO ADVERSE REACTION NOTED. Addendum: 02/26/20 at 1857 by Aleksandra Mckeon RT Amended: Links added.
[2020-02-26 21:38] VITALS: BP 139/72
[2020-02-26] MEDS: QUEtiapine FUMARATE 25 MG TAB PO SCH (23:01)
--- NOTE | 2020-02-27 00:21 | NUR ---
RT NOTE PT WAS SEEN BY RT FOR HHN TX. PT TOLERATES POORLY VIA MASK. PT REFUSED TX HALF WAY THROUGH. SITTER AT BEDSIDE. NO ADVERSE REACTION NOTED. Addendum: 02/27/20 at 0028 by Aleksandra Mckeon RT Amended: Links added.
[2020-02-27] MEDS: ALBUTEROL SULF 2.5 MG/0.5ML(0.5%) NEB SOLN NEB SCH ×3 (00:22→12:29)
[2020-02-27 04:40] VITALS: BP 138/70
--- NOTE | 2020-02-27 08:27 | NUR ---
D/C Planning Placed [facility] is ON WILL CALL. .
[2020-02-27 08:30] VITALS: BP 149/75
[2020-02-27] MEDS: FAMOTIDINE 20 MG TAB PO SCH (09:57)
[2020-02-27] MEDS: DOXYCYCLINE 100 MG TAB/CAP PO SCH (09:57)
[2020-02-27] MEDS: ENOXAPARIN SOD 40 MG/0.4 ML SYRINGE SC SCH (09:58)
[2020-02-27] MEDS: NYSTATIN TOPICAL POWDER 15GM TOP SCH (10:02)
[2020-02-27] MEDS: MUPIROCIN 2% OINT 15gm or 22gm EACHNOSTRI SCH (10:02)
[2020-02-27] MEDS: SODIUM FERR GLUC 62.5MG/5ML 125 MG in SODIUM CHL 0.9% 100 ML IV SCH (12:00)
[2020-02-27 12:33] VITALS: BP 152/87
--- NOTE | 2020-02-27 14:14 | NUR ---
D/C Planning Patient will go to room 1A accepting MD, Dr. Diallo Newberry. [facility] has been arranged via gurney and oxygen with a 16:30 brick picker time. Informed RN Franki. [facility] .
[2020-02-27 15:48] VITALS: BP 152/87
--- NOTE | 2020-02-27 17:41 | NUR ---
Patient transferred Received the order to transfer the patient to [facility]. Patient prepared for the transfer. All paperwork was completed. The patient has ALOC so was unable to explain nor have her sign the transfer instructions. Called the patient's son, Manuel, at 160hrs and explained she was being transferred and to where. He stated he was told yesterday by psychotherapist social worker but appreciated it all the same. Called and gave report to [facility], or [facility]. Removed the patient's Right IJ and bandaged appropriately. Called and received an order from Dr. Simpson prior to removing the IJ. [facility] transportation services came just prior to 1630hrs, gave them report on the patient. Telemetry box removed as well. Patient left via gurney with [facility] at 1700hrs.
== END 2020-02-27 17:00 | DRG 870 ==
LOC: ER 08:50 → EDBD 08:50 → TELE 08:51 → EDBD 08:51 → ICU WEST 02-13 13:45 → TELE-WESTW 02-24 16:54
PROVIDERS: ADMIT Internal Medicine; ATTEND Internal Medicine
PROC: 5A1955Z Respiratory Ventilation, Greater than 96 Consecutive Hours (ICD-10-PCS; 2020-02-10)
PROC: 0BH17EZ Insertion of Endotracheal Airway into Trachea, Via Natural or Artificial Opening (ICD-10-PCS; 2020-02-10)
PROC: 02HV33Z Insertion of Infusion Device into Superior Vena Cava, Percutaneous Approach (ICD-10-PCS; 2020-02-10)
PROC: 30233K1 Transfusion of Nonautologous Frozen Plasma into Peripheral Vein, Percutaneous Approach (ICD-10-PCS; 2020-02-10)
PROC: 30233N1 Transfusion of Nonautologous Red Blood Cells into Peripheral Vein, Percutaneous Approach (ICD-10-PCS; 2020-02-10)
PROC: 0DB88ZX Excision of Small Intestine, Via Natural or Artificial Opening Endoscopic, Diagnostic (ICD-10-PCS; 2020-02-11)
PROC: 0DB68ZX Excision of Stomach, Via Natural or Artificial Opening Endoscopic, Diagnostic (ICD-10-PCS; principal; 2020-02-11 13:45)
DX: A41.9 Sepsis, unspecified organism (principal); J15.212 Pneumonia due to Methicillin resistant Staphylococcus aureus; J96.01 Acute respiratory failure with hypoxia; R65.21 Severe sepsis with septic shock; N17.0 Acute kidney failure with tubular necrosis; K29.71 Gastritis, unspecified, with bleeding; G93.41 Metabolic encephalopathy; E44.0 Moderate protein-calorie malnutrition; F11.20 Opioid dependence, uncomplicated; E87.1 Hypo-osmolality and hyponatremia; D62 Acute posthemorrhagic anemia; I13.0 Hypertensive heart and chronic kidney disease with heart failure and stage 1 through stage 4 chronic kidney disease, or unspecified chronic kidney disease; Z99.11 Dependence on respirator [ventilator] status; D68.9 Coagulation defect, unspecified; M48.56XA Collapsed vertebra, not elsewhere classified, lumbar region, initial encounter for fracture; D63.8 Anemia in other chronic diseases classified elsewhere; F03.90 Unspecified dementia, unspecified severity, without behavioral disturbance, psychotic disturbance, mood disturbance, and anxiety; N18.3 Chronic kidney disease, stage 3 (moderate); I50.9 Heart failure, unspecified; I73.9 Peripheral vascular disease, unspecified; I48.91 Unspecified atrial fibrillation; G96.9 Disorder of central nervous system, unspecified; F41.9 Anxiety disorder, unspecified; Z95.2 Presence of prosthetic heart valve; Z78.9 Other specified health status; Z79.01 Long term (current) use of anticoagulants; Z79.899 Other long term (current) drug therapy; Z90.710 Acquired absence of both cervix and uterus; Y92.89 Other specified places as the place of occurrence of the external cause; Z68.35 Body mass index [BMI] 35.0-35.9, adult; Z20.828 Contact with and (suspected) exposure to other viral communicable diseases
CPT/HCPCS: 36415; 36600; 43235; 51702; 70450; 71045; 74176; 76705; 80048; 80053; 80307; 81001; 82040; 82140; 82150; 82550; 82570; 82607; 82728; 82746; 82805; 82962; 83036; 83605; 83615; 83690; 83735; 84100; 84132; 84300; 84443; 84478; 84484; 85014; 85018; 85025; 85045; 85379; 85610; 85652; 85730; 86141; 86850; 86900; 86901; 86920; 86922; 87040; 87070; 87077; 87081; 87086; 87186; 87205; 87804; 87880; 92610; 93005; 93306; 93926; 94002; 94003; 94640; 95819; 96361; 96372; 96374; C9113; G0378; J0330; J0696; J1450; J1756; J1815; J1956; J2001; J2185; J2250; J2704; J3430; J3480; J3490; J7060; P9047

== ENCOUNTER 2020-04-30 19:06 | Inpatient (IN) | payer OTHER ==
[~2020-04-30] VITALS: Ht 162.6 cm; Wt 69.7 kg
[~2020-04-30 19:06] MED LIST: AMLO5TAB15 PO; ASPI-231 PO; LISI-648 PO; MEMA1TAB3 PO; MET50T PO; METO25TA5 PO; OMEP20TA PO; TOLT2CAP7 PO; VENL150T26 PO
[2020-04-30] MEDS ORDERED: SODIUM CHLORIDE 0.9% 500 ML IV ONE (19:30)
[2020-04-30 22:32] LABS: Basophils # (auto) 0.1 10 ^3/uL (0-0.2); Basophils % (auto) 0.8 % (0.0-2.0); Eosinophils # (auto) 0.1 10 ^3/uL (0-0.8); Eosinophils % (auto) 0.8 % (0.0-7.0); Hematocrit 27.4 % (36.0-46.0); Hemoglobin 9.5 g/dL (12.2-16.2); Lymphocytes # (auto) 1.2 10 ^3/uL (0.4-5.4); Lymphocytes % (auto) 14.5 % (10.0-50.0); Mean Corpuscular Hemoglobin 33.3 pg (28.0-32.0); Mean Corpuscular Hgb Conc. 34.7 g/dL (32.0-36.0); Mean Corpuscular Volume 96.1 fL (80.0-100.0); Monocytes # (auto) 0.7 10 ^3/uL (0-1.3); Monocytes % (auto) 8.2 % (0.0-12.0); Neutrophils % (auto) 75.7 % (37.0-80.0); Nucleated Red Blood Cells % 0.1 %; Platelet Count (auto) 237 10^3/uL (140-450); Red Blood Cells 2.85 10^6/uL (4.0-5.20); Red Cell Distribution Width 15.6 % (11.8-14.3)
[2020-04-30 22:52] LABS: Alanine Aminotransferase 15 U/L (13-56); Anion Gap 9 (5-15); Blood Alcohol < 3.0 mg/dL (0-5); Blood Urea Nitrogen 22 mg/dL (7-18); Carbon Dioxide 20 mmol/L (21-32); Chloride 104 mmol/L (98-107); GFR African American 32 mL/min; GFR Non-African American 26 mL/min; Glucose 60 mg/dL (74-106); Magnesium 1.9 mg/dL (1.6-2.6); Potassium 3.9 mmol/L (3.5-5.1); Sodium 133 mmol/L (136-145)
[2020-04-30 22:57] LABS: Alkaline Phosphatase 60 U/L (45-117); Aspartate Aminotransferase 35 U/L (15-37); Bilirubin, Total 0.5 mg/dL (0.2-1.0); Total Protein 6.5 g/dL (6.4-8.2)
[2020-05-01] MEDS ORDERED: SODIUM CHLORIDE 0.9% 500 ML IV ONE (01:30)
[2020-05-01 01:58] LABS: Hematocrit 27.9 % (36.0-46.0); Hemoglobin 9.3 g/dL (12.2-16.2)
[2020-05-01 02:16] LABS: INR 1.28 (0.9-1.15); Partial Thromboplastin Time 31.2 sec (23.0-31.2)
[2020-05-01] MEDS ORDERED: NITROGLYCERIN 0.4 MG SL TAB SL PRN (04:00)
[2020-05-01] MEDS ORDERED: MORPHINE SULF INJ 2 MG/ML SYRINGE 1ML IV PRN (04:00)
[2020-05-01] MEDS ORDERED: DOCUSATE SOD 100 MG CAP PO PRN (04:00)
[2020-05-01] MEDS ORDERED: ONDANSETRON HCL 4 MG/2 ML VIAL IV PRN (04:00)
[2020-05-01] MEDS ORDERED: ACETAMINOPHEN 325 MG TAB PO PRN (04:00)
[2020-05-01 04:11] VITALS: BP 116/52
[2020-05-01 05:45] VITALS: BP 102/61
--- NOTE | 2020-05-01 05:45 | NUR ---
MS admit from ER MICHELLE PRESTON admitted to tele/MS after SBAR received. Patient oriented to JEANIE GUILLEN, primary RN, unit, room, bed, and unit policies regarding patient care and visiting hours. Patient weighed by bedscale and encouraged to call if they need something. All questions and concerns addressed, patient verbalized understanding.
[2020-05-01] MEDS: ALBUTEROL SULF HFA 90MCG INH 200DOSE IN SCH ×2 (06:00→14:00)
--- NOTE | 2020-05-01 06:00 | NUR ---
mdi held, pending 2nd covid test. No resp. distress noted. sp02 96% on 2lpm nc.
[2020-05-01] MEDS ORDERED: WARF3TAB22 PO (06:02)
[2020-05-01] MEDS: SODIUM CHLOR 0.9% PF (SALINE LOCK) 10ML VIAL/SYR IV SCH ×3 (06:10→22:07)
--- NOTE | 2020-05-01 06:35 | NUR ---
SPOKE WITH BOO CHINO FROM [facility] SAID SHE WILL SEND OVER ACTIVE MEDS LIST AND POLST -DNR [phone]
--- NOTE | 2020-05-01 07:20 | NUR ---
END OF SHIFT NOTE ENDORSE PT CARE TO DAY SHIFT RN. PT [id number], NO S/S OF DISTRESS OR SOB Addendum: 05/01/20 at 0759 by JEANIE GUILLEN RN PT IS [id number]
[2020-05-01] MEDS ORDERED: B-CO1TAB32 PO (07:44)
[2020-05-01] MEDS ORDERED: ASCO500T11 PO (07:44)
[2020-05-01] MEDS ORDERED: QUET100T46 PO (07:44)
[2020-05-01] MEDS ORDERED: FERR-20 PO (07:44)
[2020-05-01] MEDS ORDERED: HYDR-5139 PO (07:44)
[2020-05-01] MEDS ORDERED: ONDA-155 PO (07:44)
[2020-05-01] MEDS ORDERED: IPRA0.03 (07:44)
[2020-05-01] MEDS ORDERED: CLON0.1T PO (07:44)
[2020-05-01] MEDS ORDERED: ACET-1156 PO (07:44)
[2020-05-01] MEDS ORDERED: FAMO20TA10 PO (07:44)
[2020-05-01 07:56] LABS: Basophils # (auto) 0 10 ^3/uL (0-0.2); Basophils % (auto) 0.6 % (0.0-2.0); Eosinophils # (auto) 0 10 ^3/uL (0-0.8); Eosinophils % (auto) 0.6 % (0.0-7.0); Hematocrit 28.6 % (36.0-46.0); Hemoglobin 9.2 g/dL (12.2-16.2); Lymphocytes # (auto) 0.9 10 ^3/uL (0.4-5.4); Lymphocytes % (auto) 11.8 % (10.0-50.0); Mean Corpuscular Hemoglobin 30.7 pg (28.0-32.0); Mean Corpuscular Hgb Conc. 32.2 g/dL (32.0-36.0); Mean Corpuscular Volume 95.3 fL (80.0-100.0); Monocytes # (auto) 0.7 10 ^3/uL (0-1.3); Monocytes % (auto) 8.5 % (0.0-12.0); Neutrophils # (auto) 6.2 10 ^3/uL (1.6-8.6); Neutrophils % (auto) 78.5 % (37.0-80.0); Platelet Count (auto) 255 10^3/uL (140-450); Red Cell Distribution Width 15.8 % (11.8-14.3); White Blood Cell 7.9 10^3/uL (4.4-10.8)
[2020-05-01 08:13] LABS: Albumin 3.5 g/dL (3.4-5.0); BUN/Creatinine Ratio 14.1; Calcium 8.5 mg/dL (8.5-10.1); Potassium 4.5 mmol/L (3.5-5.1)
[2020-05-01 08:21] LABS: Bilirubin, Total 0.5 mg/dL (0.2-1.0); CRP High Sensitivity 2.43 mg/dL (< 0.3); Total Protein 6.7 g/dL (6.4-8.2)
--- NOTE | 2020-05-01 08:43 | NUR ---
SPOKE TO AURORA FROM [facility]. SHE WOULD LIKE TO HAVE THE PATIENT DISCHARGED HOME AND THEY WILL RESUME HOSPICE CARE.
[2020-05-01 08:54] VITALS: BP 134/68
[2020-05-01] MEDS ORDERED: BUDESONIDE (INHALATION) 180 MCG IH IN SCH (10:00)
[2020-05-01] MEDS ORDERED: ASPirin-EC 81 mg tab PO SCH (10:00)
[2020-05-01] MEDS ORDERED: ZINC SULFATE 220mg CAP or TAB PO SCH (10:00)
[2020-05-01] MEDS ORDERED: ASCORBIC ACID 1,000 MG TAB PO SCH (10:00)
[2020-05-01] MEDS ORDERED: CHOLECALCIFEROL (VITD3) 2,000 UNIT CAP PO SCH (10:00)
[2020-05-01] MEDS ORDERED: PANTOPRAZOLE 40 MG/10 ML VIAL INJ IV SCH (10:00)
[2020-05-01] MEDS ORDERED: ENOXAPARIN SOD 30 MG/0.3 ML SYRINGE SC SCH (10:00)
[2020-05-01] MEDS ORDERED: MULTIPLE VITAMIN TAB PO SCH (10:00)
[2020-05-01] MEDS: MEMANTINE HCL 5 MG TAB PO SCH ×2 (10:12→22:06)
[2020-05-01] MEDS: MEGESTROL ACETATE 20 MG TAB PO SCH ×2 (10:12→22:06)
[2020-05-01 12:07] VITALS: BP 146/77
[2020-05-01 16:12] VITALS: BP 152/72
--- NOTE | 2020-05-01 17:50 | NUR ---
SS consult to resume hospice upon discharge. Contacted pt's son, ANGEL, and he confirmed pt was on service with [facility] prior to admission. Also discussed with son pt's cognitive state prior to admission and currently. Per son, pt resides at home alone with caregivers and is alert and oriented. Provided clinical information via fax to Debbie at [facility] and pt scheduled for pickup at 9:30pm.
[2020-05-01 22:00] VITALS: BP 139/74
--- NOTE | 2020-05-01 22:37 | NUR ---
[facility] transport arrived. Facesheet and current vitals provided. Discharge instructions given as ordered. Encourage to follow up with PMD as instructed. All questions and concerns addressed. Patient verbalized understanding. Medication reconciliation form completed and copy given to patient. IV removed with catheter intact, pressure dressing applied. Telemetry unit returned to ICU. Patient taken to vehicle via stretcher with all personal belongings, accompanied by 2 [facility] staff and [facility] staff. No distress noted at time of departure.
== END 2020-05-01 22:55 | disposition hospice, home (50) | DRG 178 ==
LOC: EDUNIT# 19:06 → EDBD 19:06 → ER 19:06 → TELE 19:07 → TELE-EAST 05-01 05:45
PROVIDERS: ADMIT Nurse Practitioner Family; ATTEND Internal Medicine
DX: U07.1 COVID-19 (principal); E44.1 Mild protein-calorie malnutrition; I95.9 Hypotension, unspecified; D64.9 Anemia, unspecified; I10 Essential (primary) hypertension; J44.9 Chronic obstructive pulmonary disease, unspecified; I25.2 Old myocardial infarction; Z90.89 Acquired absence of other organs; Z90.49 Acquired absence of other specified parts of digestive tract; Z90.710 Acquired absence of both cervix and uterus; Z79.82 Long term (current) use of aspirin; G30.9 Alzheimer's disease, unspecified; F02.80 Dementia in other diseases classified elsewhere, unspecified severity, without behavioral disturbance, psychotic disturbance, mood disturbance, and anxiety; Z51.5 Encounter for palliative care; R62.7 Adult failure to thrive; R79.89 Other specified abnormal findings of blood chemistry; Z80.9 Family history of malignant neoplasm, unspecified
CPT/HCPCS: 36415; 70450; 71045; 80053; 80320; 82728; 83605; 83615; 83735; 83880; 84443; 84484; 85014; 85018; 85025; 85379; 85610; 85730; 86141; 86850; 86900; 86901; 87426; 93005; 96360; 96361; G0378